=== PATIENT | female | born 1960 | race Caucasian/White ===

== ENCOUNTER 2025-05-10 15:31 | Emergency (ER) | payer OTHER ==
[2025-05-10] MEDS ORDERED: ONDANSETRON 4 MG (ODT) TAB ONE (15:36)
[2025-05-10] MEDS ORDERED: LIDOCAINE 1% MPF 5 ML VIAL ONE (15:38)
[2025-05-10] MEDS ORDERED: BUPIVACAINE 0.5% PF 10 ML VIAL ONE (15:39)
--- OUTSIDE RECORDS SUMMARY | 2025-05-10 15:40 | XMS REPORT | Continuity of Care Document ---
Author Name Unknown Address [address] [facility] [address] [place] [address] [facility] Address [address] [facility] [address] [place] [address] Support Name Relationship Address Phone AIDA CAILXTO Personal Relationship [address] [place] [address] AIDA CALIXTO Personal Relationship [address] [place] [address] AIDA CALIXTO [address] [place] [phone] Aida Cee Spouse [address] [id number] MIHAI WONG Unknown Unavailable AIDA CALIXTO X [address] [phone] Unavailable ONDINA DUARTE [address] [place], [place] [id number] AIDA CALIXTO [id number] [place] [address] 1 [address] [place] [address] Unavailable 2 Personal Relationship [address] [place] [address] Unavailable 2 Personal Relationship [address] [place] [phone] Unavailable 1 AIDA [address] [facility] [address] [facility] [address] [place] [id number] Unavailable [address] [place], [place] [id number] Unavailable 3 Personal Relationship [address] [place] [phone] Unavailable AIDA CALIXTO SP [address]250 REPLACED BY [facility] [address] [place], [place] [id number] Unavailable Unavailable Personal Relationship [address] [place] [phone] Unavailable Care Team Providers Care Finance Intern Name Role Phone PCP, PATIENT DOES NOT HAVE A Primary Care Physic david Unavailable FAUSTO HOOVER Attending Clinician Unavailable FILIBERTO TREVINO Attending Clinician Unavailab rahul ALBERTO MD Attending Clinician Unavailab Chaz Schultz Attending Clinician Unavailab le LAB90 Attending Clinician Unavailable ANDRES MORALES Attending Clinician Unavailable SYDNEY JONAS Attending Clinician UnavailSYDNEY Huerta Attending Clinician UnavailSydney Huerta MD Attending Clinician [phone] [facility] Attending Clinician Unavailabl e FT39 Attending Clinician Unavailable [facility] Attending Clinician Unavailable Sydney Jonas MD Attending Clinician [phone] Doctor Unassigned, Heeney Attending Clinician U SUSAN Freeman Attending Clinician Unavailable BLAS GU Attending Clinician Unavailable ELENA STREETER Attending Clinician Unavailable PATTIE BABB Attending Clinician Unavailable Charlotte Mcdonald MD Attending Clinician [phone] CHARLOTTE MCDONALD Attending Clinician Unavailable Radiology Attending Clinician Unavailable RADIOLOGY Attending Clinician Unavailable Luis Attending Clinician Unavailable Team, [facility] Attending Clinicia n Unavailable Alex MENDOZA-Pattie Vargas Attending Clinician [phone] Teeamberly_Shyanne Attending Clinician Unavailable Gianni Attending Clinician Unavailable LORETO MIRANDA Attending Clinician Unavailable Bailey Álvarez RN Attending Clinician Unavailable UNKNOWN, ATTENDING Attending Clinician Unavailab Chaz Schultz Admitting Clinician UnavailCharlotte Cody MD Admitting Clinician [phone] CHARLOTTE MCDONALD Admitting Clinician Unavailable Luis Admitting Clinician Unavailable Teer_Shyanne Admitting Clinician Unavailable Gianni Admitting Clinician Unavailable Payers Payer Name Policy Type Policy Number Effective Date Expirati on Date Source [employer] 2 [id number] 2024 00:00:00 CIGNA II [id number] 2013 00:00:00 [employer] [facility] [id number] 2016 00:00:00 Problems Condition Name Condition Details Condition Category Status Onset Date Resolution Date Last Treatment Date Treating Clinician Comments Source Pacemaker Pacemaker Disease Active 2025-0 5-05 00:00: 00 Connie Pfeiffer - Externa jose raul AV block, Mobitz 2 AV block, Mobitz 2 Disease Active 4 00:00: 00 Connie Pfeiffer - Externa jose raul Well adult exam Well adult exam Disease Active 4 00:00: 00 Connie Quesada Externa jose raul Gastroesop hageal reflux disease without esophagiti s Gastroesop hageal reflux disease without esophagiti s Disease Active 1-31 00:00: 00 Connie Pfeiffer - Externa jose raul Left arm cellulitis Left arm cellulitis Disease Active 9-16 00:00: 00 Connie Pfeiffer - Externa jose raul Class 1 obesity due to excess calories with serious comorbidit y and body mass index (BMI) of 34.0 to 34.9 in adult Class 1 obesity due to excess calories with serious comorbidit y and body mass index (BMI) of 34.0 to 34.9 in adult Disease Active 6-03 00:00: 00 Connie Pfeiffer - Externa jose raul Primary insomnia Primary insomnia Disease Active 603 00:00: 00 Connie Pfeiffer - Externa jose raul Severe obesity Severe obesity Disease Active 603 00:00: 00 Connie Pfeiffer - Externa jose raul Statin intoleranc e Statin intoleranc e Disease Active 4-04 00:00: 00 Connie Pfeiffer - Externa jose raul Blood pressure elevated without history of HTN Blood pressure elevated without history of HTN Disease Active 11-23 00:00: 00 Connie Pfeiffer - Externa jose raul Other fatigue Other fatigue Disease Active -08 00:00: 00 Connie Pfeiffer - Externa jose raul Primary hypertensi on Primary hypertensi on Disease Active 11-23 00:00: 00 Connie Pfeiffer - Externa jose raul Prediabete s Prediabete s Disease Active 2021-09 00:00: 00 Connie Pfeiffer - Externa jose raul Obesity (BMI 30-39.9) Obesity (BMI 30-39.9) Disease Active 2021-09 00:00: 00 [facility] Right upper quadrant abdominal pain Right upper quadrant abdominal pain Disease Active 2021-09 00:00: 00 Connie Seybold - Externa l Nicotine dependence Nicotine Dependence Problem Active 05-29 00:00: 00 [facility] Gastroesop hageal reflux disease without esophagiti s Gastroesop hageal Reflux Disease without Esophagiti s Problem Active 05-29 00:00: 00 [facility] Osteoarthr itis Osteoarthr itis Problem Active 05-29 00:00: 00 [facility] History of pulmonary embolus History of Pulmonary Embolus Problem Active 05-29 00:00: 00 [facility] Closed fracture of multiple phalanges of toe of right foot Closed fracture of multiple phalanges of toe of right foot Disease Active 05-09 00:00: 00 Connei Jungold PE (pulmonary thromboemb olism) PE (pulmonary thromboemb olism) Disease Active 01-18 00:00: 00 Connie Jungold Tobacco use disorder Tobacco use disorder Disease Active 02-04 00:00: 00 Connie Seybold Knee pain Knee pain Disease Active 02-04 00:00: 00 Connie Seybold Hip pain Hip pain Disease Active 02-04 00:00: 00 Connie Seybold - Externa l GERD (gastroeso phageal reflux disease) GERD (gastroeso phageal reflux disease) Disease Active 10-16 00:00: 00 Connie Seybold Mixed hyperlipid emia Mixed hyperlipid emia Disease Active 02-13 00:00: 00 Connie Seybold - Externa l No known active problems No known active problems Disease [facility] Allergies, Adverse Reactions, Alerts Allergy Name Allergy Type Status Severity Reaction(s) Onset Date Inactive Date Treating Clinician Comments Source predniso ne DA Active MO hives 01-15 00:00: 00 [facility] Atorvast atin Propensi ty to adverse reaction s Active Myalgia 2023-09 0 00:00: 00 Severe after 4 days of taking Connie Seybold - Externa l Predniso ne Drug Intolera nce Active Other - See comments 09-23 00:00: 00 Agitation Agitation [facility] Yellow Dye Propensi ty to adverse reaction s Active Itching 09-23 00:00: 00 [facility] VENOM-HO DOMITILA BEE DRUG INGREDI Active High Anaphylaxis 0 - 00:00: 00 [facility] YELLOW DYE DRUG INGREDI Active High ITCHING 0 09-23 00:00: 00 [facility] PREDNISO NE DRUG INGREDI Active Med Anxiety - 00:00: 00 [facility] Predniso ne Propensi ty to adverse reaction s Active Other - 00:00: 00 Agitation Connie Jungold - Externa l Bee Venom Propensi ty to adverse reaction s Active Anaphylaxis - 00:00: 00 Connie Jungold - Externa l Honey Bee Venom Propensi ty to adverse reaction s Active Anaphylaxis 0 09-23 00:00: 00 Connie Pfeiffer - Externa jose raul Bee Venom Propensi ty to adverse reaction s Active Anaphylaxis 09-23 00:00: 00 Connie Pfeiffer - [place] jose raul Yellow Dye Propensi ty to adverse reaction s Active Itching 09-23 00:00: 00 Connie Pfeiffer - Externa l Kdc:[place] ow Dye+Tart razine+L evofloxa catherine Propensi ty to adverse reaction s Active Itching 09-23 00:00: 00 Connie Pfeiffer - Externa l HYDROCOD ONE-ACET AMINOPHE N DRUG Active Low NAUSEA ONLY 05-09 00:00: 00 [facility] Hydrocod one-Acet aminophe n Propensi ty to adverse reaction s Active Nausea Only 05-09 00:00: 00 Connie Pfeiffer - Externa l levoflox acin DA Active U VOMITING 01-18 00:00: 00 [facility] venom-ho domitila bee DA Active SV EDEMA 01-18 00:00: 00 [facility] latex DA Active U RASH, EDEMA 01-18 00:00: 00 [facility] Latex Propensi ty to adverse reaction s Active Rash 12-20 00:00: 00 [facility] LATEX DRUG INGREDI Active High Rash 12-20 00:00: 00 [facility] Latex Drug Allergy Active Rash 12-20 00:00: 00 Connie Pfeiffer - Externa l Latex Drug Allergy Active Rash 12-20 00:00: 00 Connie Pfeiffer Levoflox acin Propensi ty to adverse reaction s to drug Active Nausea and/or Vomiting 10-18 00:00: 00 Prolonged vomiting 3 to 4 hours after taking a dose. [facility] LEVOFLOX ACIN DRUG INGREDI Active Med N/V 10-18 00:00: 00 [facility] Levoflox acin Propensi ty to adverse reaction s Active Nausea and Vomiting 10-18 00:00: 00 Prolonged vomiting 3 to 4 hours after taking a dose. Connie Pfeiffer - Externa l Amoxicil alireza-Pot Clavulan ate Propensi ty to adverse reaction s to drug Active Hives 12-19 00:00: 00 Vomiting (combinat ion of augment and amoxicill in) [facility] AMOXICIL ALIREZA-POT CLAVULAN ATE DRUG Active Med Hives 12-19 00:00: 00 [facility] Amoxicil alireza-Pot Clavulan ate Propensi ty to adverse reaction s Active Hives 12-19 00:00: 00 vomiting Connie Blackburna l Augmenti n Propensi ty to adverse reaction s to drug Active 12-19 00:00: 00 vomiting Connie blunt No Known Contrast Allergie s DA Active U 2007-09 00:00: 00 [facility] No Known Drug Allergie s DA Active U 2007-09 00:00: 00 [facility] No Known Food Allergie s DA Active U 2007-09 00:00: 00 [facility] No Known Other Allergie s DA Active U 2007-09 00:00: 00 [facility] NO KNOWN ALLERGIE S Drug [facility] VENOM PROTEIN (HONEY BEE) Allergy to substanc e Active Moderate to severe Anaphylaxis [facility] Latex Allergy to substanc e Active Mild to moderate Rash [facility] Levaquin Allergy to substanc e Active Moderate to severe Itching [facility] Social History Social Habit Start Date Stop Date Quantity Comments Source [facility] History of tobacco use Cigarette Smoker Connie parada - External History SDOH Alcohol Frequency Connie kapoor - External History SDOH Alcohol Std Drinks Connie harris - External History SDOH Alcohol Binge Connie Pfeiffer - External ASSERTION Not Connie Pfeiffer - External History of Occupation Connie Pfeiffer - External Alcoholic beverage intake 2024-10-30 00:00:00 2024-10-30 00:00:00 [facility] History of Social function 2024-03-13 00:00:00 2024-03-13 00:00:00 [facility] Cigarettes smoked current (pack per day) - Reported 2024-02-19 00:00:00 2024-02-19 00:00:00 Connie Pfeiffer - External Cigarette pack-years 2024-02-19 00:00:00 2024-02-19 00:00:00 Connie Pfeiffer - External Tobacco use and exposure 2024-02-19 00:00:00 2024-02-19 00:00:00 Smokeless tobacco non-user Connie Pfeiffer - External Alcohol intake 2023-12-21 00:00:00 2023-12-21 00:00:00 Current drinker of alcohol (finding) Connie Pfeiffer - External Tobacco Comment 2023-11-24 00:00:00 2023-11-24 00:00:00 Patient is a former cigarette smoker, now vapes Connie Pfeiffer - External Exposure to SARS-CoV-2 (event) 2022-08-08 00:00:00 2022-08-18 16:05:00 Not sure [facility] Alcohol Comment 2022-08-17 00:00:00 2022-08-17 00:00:00 rarely Connie Pfeiffer - External Education 2022-08-17 00:00:00 2022-08-17 00:00:00 17 Connie Pfeiffer - External Sex 2013-10[birth year] 19:41:59 2013-10[birth year]03 19:41:59 Female (finding) Connie Pfeiffer - External Sex assigned at 1960 00:00:00 1960 00:00:00 F Connie Quesada External Smoking Status Start Date Stop Date Source Light Tobacco Smoker [facility] Smokes tobacco daily 2024-02-19 00:00:00 Connie Quesada External Ex-smoker 2022-08-17 00:00:00 2022-08-17 00:00:00 Kedar Pfeiffer - External Medications Ordered Medication Name Filled Medication Name Start Date Stop Date Current Medication? Ordering Clinician Indication Dosage Frequency Signature (SIG) Comments Components Source Semaglutide (0.25 or 0.5 mg/dose) 2 mg/3 mL SQ Solution Pen-Injecto r 03-10 16:09: 15 Yes Q1W Inject into the skin once a week. Connie blunt HYDROcodone -Acetaminop hen (NORCO) 5-325 MG oral Tablet 05 00:00: 00 03-10 00:00 :00 No [id number] 1{tbl} QD Take 1 tablet by mouth daily as needed for pain. Connie blunt Doxycycline Hyclate 100 MG oral Capsule 01-15 00:00: 00 03-10 00:00 :00 No Connie blunt EPINEPHrine (EPIPEN 2-CARTER) 0.3 MG/0.3 ML IJ SOA 01-06 00:00: 00 Yes [id number] 984665 .3mg Inject 0.3 mL (0.3 mg total) as directed as needed for anaphylaxi s 1 time only. Connie blunt Ibuprofen (MOTRIN) 800 MG oral Tablet 01-06 00:00: 00 01-13 00:00 :00 No [id number] 800mg Q.[id number] 3D Take 1 tablet (800 mg total) by mouth every 8 hours as needed for pain. Connie blunt Cephalexin 500 MG oral Capsule 4-21 00:00: 00 01-13 00:00 :00 No [id number] 500mg Q.25D Take 1 capsule (500 mg total) by mouth 4 times daily. Connie blunt Omeprazole 40 MG oral Delayed Release Capsule 2- 00:00: 00 Yes [id number] 40mg QD Take 1 capsule (40 mg total) by mouth daily. Connie blunt Losartan Potassium 25 MG oral Tablet 11-08 00:00: 00 Yes [id number] 25mg QD Take 1 tablet (25 mg total) by mouth daily. Connie blunt Tirzepatide -Weight Management 2.5 MG/0.5ML subcutaneou s Solution Auto-inject or 10-18 00:00: 00 01-13 00:00 :00 No [id number] 104 2.5mg Q1W Inject 0.5 mL (2.5 mg total) into the skin once a week. Connie blunt EPINEPHrine (EPIPEN 2-CARTER) 0.3 MG/0.3 ML IJ SOAJ 06-03 00:00: 00 01-06 00:00 :00 No [id number] 286564 .3mg Inject 0.3 mL (0.3 mg total) as directed as needed for anaphylaxi s 1 time only. Connie blunt Doxycycline Hyclate 100 MG oral Tablet 06-03 00:00: 00 10-18 00:00 :00 No [id number] 100mg Take 1 tablet (100 mg total) by mouth every 12 hours Please take with food. Connie blunt Ibuprofen (MOTRIN) 800 MG oral Tablet 06-03 00:00: 00 10-18 00:00 :00 No [id number] 800mg Take 1 tablet (800 mg total) by mouth every 12 hours as needed for pain Please take with food. Connie blunt triamcinolo ne acetonide (KENALOG) injection 8 mg 03-13 05:00: 00 03-13 16:59 :00 No [id number] 9107 8mg [facility] losartan 25 mg tablet 02-22 00:00: 00 Yes 25mg Take 1 tablet by mouth in the morning. [facility] Losartan Potassium 25 MG oral Tablet 12-20 00:00: 00 Yes [id number] 25mg Take 1 tablet (25 mg total) by mouth daily. Connie blunt Losartan Potassium 25 MG oral Tablet 11-23 00:00: 00 Yes [id number] 25mg Take 1 tablet (25 mg total) by mouth daily. Connie blunt Omeprazole 40 MG oral Delayed Release Capsule 11-23 00:00: 00 Yes [id number] 40mg QD Take 1 capsule (40 mg total) by mouth daily. Connie blunt triamcinolo ne acetonide (KENALOG) injection 80 mg 09-21 21:30: 00 09-21 20:36 :00 No [id number] 9102 80mg [facility] acetaminoph en-codeine 300-30 mg tablet 2022-09 00:00: 00 Yes TAKE ONE (1) TABLET(S) BY MOUTH EVERY EIGHT HOURS NEEDED FOR PAIN. [facility] LANSOPRAZOL E (PREVACID ORAL) 05-22 11:56: 22 05-22 00:00 :00 No Take by mouth. [facility] triamcinolo ne acetonide (KENALOG) injection 40 mg 05-19 15:30: 00 05-19 14:23 :00 No [id number] 9102 40mg [facility] PEG-KCl-NaC l-NaSulf-Na Asc-C (MOVIPREP) 100 g oral Recon Soln 10-17 00:00: 00 12-20 00:00 :00 No [id number] Instructio ns provided to patient. Follow instructio ns provided by provider. Connie blunt Omeprazole 40 MG oral Delayed Release Capsule 10-17 00:00: 00 11-23 00:00 :00 No [id number] 40mg Take 1 capsule (40 mg total) by mouth daily Connie blunt Atorvastati n Calcium 20 MG oral Tablet 2021-09 00:00: 00 11-23 00:00 :00 No [id number] 20mg Take 1 tablet (20 mg total) by mouth daily Connie blunt EPINEPHrine (EPIPEN 2-CARTER) 0.3 MG/0.3 ML IJ SOAJ 2021-09 00:00: 00 06-03 00:00 :00 No [id number] 605065 .3mg Inject 0.3 mL (0.3 mg total) as directed as needed for anaphylaxi s 1 time only Connie blunt lactated ringers IV infusion 1,000 mL 2021-09 19:30: 00 Yes 1000mL at 100 mL/hr, 1,000 mL, IV Infusion, CONTINUOUS , Starting on Mon08/23/22 at 1330, Until Discontinu ed, Routine, PACU [facility] HYDROcodone -acetaminop hen (NORCO 5) 5-325 mg tablet 1 tablet 2021-09 19:30: 00 08-23 20:32 :00 No 1{tbl} 1 tablet, Oral, ONCE, 1 dose, On Mon08/23/22 at 1330, Routine, PACU [facility] HYDROmorphO ne (DILAUDID) injection 0.2 mg 2021-09 19:19: 51 Yes .2mg 0.2 mg, Slow IV Push, Q5MIN PRN, 10 doses, Starting on Mon08/23/22 at 1319, Until Discontinu ed, Routine, Pain (scale 7-10), PACU
Us e approved by (Faculty): PACU USE -ANESTHESI A SERVICE-HY DROMORPHON E INJECTIONS [facility] ondansetron (ZOFRAN (PF)) injection 4 mg 2021-09 19:19: 51 Yes 4mg 4 mg, Slow IV Push, PRN, 1 dose, Starting on Mon08/23/22 at 1319, Until Discontinu ed, Routine, Nausea and Vomiting (N/V), PACU [facility] FENTanyl PF (SUBLIMAZE (PF)) injection 25 mcg 2021-09 19:19: 51 08-23 20:02 :00 No 25ug 25 mcg, Slow IV Push, Q5MIN PRN, 4 doses, Starting on Mon08/23/22 at 1319, Until Mon08/23/22 at 1402, Routine, Pain (scale 4-6), PACU [facility] bupivacaine -epinephrin e-pf (SENSORCAIN E W/EPINEPHRI NE) 0.25 %-1:200,000 injection 2021-09 18:17: 00 08-23 19:19 :36 No PRN, Starting on Mon08/23/22 at 1217, Until Mon08/23/22 at 1319, Routine, Intra-op [facility] sodium chloride 0.9 % irrigation solution 2021-09 18:17: 00 08-23 19:19 :36 No PRN, Starting on Mon08/23/22 at 1217, Until Mon08/23/22 at 1319, Intra-op [facility] lactated ringers IV infusion 1,000 mL 2021-09 17:15: 00 08-23 17:10 :00 No 1000mL at 42 mL/hr, 1,000 mL, IV Infusion, ONCE, 1 dose, On Mon08/23/22 at 1115, Routine, DSU Pre-op [facility] LANSOPRAZOL E (PREVACID ORAL) 2021-09 15:23: 14 Yes Take by mouth. [facility] Prevacid 3 mg/mL compounded oral suspension 2021-09 15:06: 36 08-17 00:00 :00 No 1{tbl} Take 1 tablet by mouth daily Connie blunt Lansoprazol e (PREVACID OR) 2021-09 15:06: 08-17 00:00 :00 No Take by mouth Connie blunt Ibuprofen (ADVIL) 200 MG oral Tab 2021-09 15:06: 24 08-17 00:00 :00 No 800mg Take 800 mg by mouth 2 times daily Sometimes 3 times a day Connie blunt Dexamethaso ne Sodium Phosphate (DECADRON) 4 mg/mL 09-23 22:00: 00 09-23 22:08 :00 No [id number] 8mg Connie Pfeiffer Lansoprazol e (PREVACID OR) 09-23 15:28: 58 Yes Take by mouth Connie Pfeiffer Ibuprofen (ADVIL) 200 MG oral Tab 09-23 15:28: 58 Yes 800mg Take 800 mg by mouth 2 times daily Sometimes 3 times a day Connie Pfeiffer Prevacid 3 mg/mL compounded oral suspension 09-23 15:28: 58 Yes 1{tbl} Take 1 tablet by mouth daily Connie Pfeiffer EPINEPHrine 0.3 mg/0.3 mL injection 09-23 00:00: 00 Yes 1{each} 1 Each as needed. [facility] EPINEPHrine (EPIPEN 2-CARTER) 0.3 MG/0.3 ML IJ SOAJ 09-23 00:00: 00 09-08 00:00 :00 No [id number] 345531 .3mg Inject 0.3 mL (0.3 mg total) as directed as needed for anaphylaxi s 1 time only Connie blunt Triamcinjustin ne Acetonide 0.1 % apply externally Cream 09-23 00:00: 00 10-22 05:59 :00 No [id number] Apply to area twice daily Connie Pfeiffer ondansetron 4 mg disintegrat ing tablet 02-18 00:00: 00 02-23 04:59 :00 No [id number] 4mg Take 1 tablet by mouth every 8 (eight) hours as needed for Nausea and Vomiting (N/V) for up to 4 days. [facility] Benzonatate 200 MG oral Cap 05-29 00:00: 00 Yes 200mg Q.[id number] 3D Take 1 capsule by mouth 3 times daily as needed for cough Connie Pfeiffer Guaifenesin -Codeine 100-10 MG/5ML oral Syrup 05-25 00:00: 00 Yes [id number] 5mL Q.[id number] 3D Take 5 mL by mouth 3 times daily as needed for cough Connie Pfeiffer Albuterol HFA 108 (90 Base) MCG/ACT IN AERS 05-25 00:00: 00 Yes [id number] 2{puff} Q4H Inhale 2 puffs into the lungs every 4 hours as needed for wheezing Connie Pfeiffer Tramadol HCl 50 MG oral Tab 05-09 00:00: 00 Yes 50mg Q6H Take 1 tablet by mouth every 6 hours as needed for pain Connie Pfeiffer LANSOPRAZOL E (PREVACID ORAL) 05-13 18:27: 56 Yes Take by mouth. [facility] MELOXICAM ORAL 05-13 18:27: 56 Yes Take by mouth. [facility] LANSOPRAZOL E (PREVACID ORAL) 05-13 13:27: 56 Yes Take by mouth. [facility] Aleve 220 mg capsule Take 1 capsule every day by oral route as needed. Aleve 220 mg capsule Take 1 capsule every day by oral route as needed. No 1capsul e(s) Q1D Aleve 220 mg capsule Take 1 capsule every day by oral route as needed. [facility] hydroxyzine HCl 25 mg tablet Take 1 tablet 3 times a day by oral route as needed. itching, caution with drowsiness. hydroxyzine HCl 25 mg tablet Take 1 tablet 3 times a day by oral route as needed. itching, caution with drowsiness. No 1 TID hydroxyzin e HCl 25 mg tablet Take 1 tablet 3 times a day by oral route as needed. itching, caution with drowsiness . [facility] Pepcid Complete 1 tab po once a day Pepcid Complete 1 tab po once a day No Pepcid Complete 1 tab po once a day [facility] prednisone 20 mg tablet 3 tabs po daily x 3 days, 2 tabs daily x 3 days and then 1 tab daily x 3 days. prednisone 20 mg tablet 3 tabs po daily x 3 days, 2 tabs daily x 3 days and then 1 tab daily x 3 days. No prednisone 20 mg tablet 3 tabs po daily x 3 days, 2 tabs daily x 3 days and then 1 tab daily x 3 days. [facility] e Immunizations Ordered Immunization Name Filled Immunization Name Date Status Comments Source Influenza Virus Vaccine, age 6 months and up 2022-10-24 00:00:00 Completed Connie Seybold - External Influenza Virus Vaccine, age 6 months and up 2022-10-24 00:00:00 Completed Connie Seybold - External Influenza Virus Vaccine, age 6 months and up 2022-09-08 00:00:00 Completed Connie Seybold - External Influenza Virus Vaccine, age 6 months and up 2022-09-08 00:00:00 Completed Connie Seybold - External Influenza Virus Vaccine, age 6 months and up 2022-09-08 00:00:00 Completed Connie Seybold - External Influenza Virus Vaccine, age 6 months and up 2022-09-08 00:00:00 Completed Connie Seybold - External SARS-COV-2 COVID-19 PFIZER VACCINE 2020-12-07 00:00:00 Completed [facility] SARS-COV-2 COVID-19 PFIZER VACCINE 2020-12-07 00:00:00 Completed [facility] SARS-COV-2 COVID-19 PFIZER VACCINE 2020-12-07 00:00:00 Completed [facility] SARS-COV-2 COVID-19 PFIZER VACCINE 2020-12-07 00:00:00 Completed [facility] SARS-COV-2 COVID-19 PFIZER VACCINE 2020-12-07 00:00:00 Completed [facility] SARS-COV-2 COVID-19 PFIZER VACCINE 2020-12-07 00:00:00 Completed [facility] SARS-COV-2 COVID-19 PFIZER VACCINE 2020-12-07 00:00:00 Completed [facility] SARS-COV-2 COVID-19 PFIZER VACCINE 2020-12-07 00:00:00 Completed [facility] SARS-COV-2 COVID-19 PFIZER VACCINE 2020-12-07 00:00:00 Completed [facility] SARS-COV-2 COVID-19 PFIZER VACCINE 2020-12-07 00:00:00 Completed [facility] [facility] SARS-COV-2 COVID-19 PFIZER VACCINE 2020-12-07 00:00:00 Completed [facility] Pfizer COVID-19 Vaccine Pfizer COVID-19 Vaccine 2020-12-07 00:00:00 Completed COVID-19, mRNA, LNP-S, PF, 30 mcg/0.3 mL dose COVID-19, mRNA, LNP-S, PF, 30 mcg/0.3 mL dose 2020-12-07 00:00:00 Completed [facility] COVID-19 VACCINE PFIZER 12+ (Hughes cap) 2020-12-07 00:00:00 Completed Connie Seybold - External Covid-19 Vaccine (Pfizer), Mrna-lnp, Gonzalo Protein, Pf, 30mcg/0.3ml,IM 2020-12-07 00:00:00 Completed Connie Seybold - External COVID-19 VACCINE PFIZER 12+ (Hughes cap) 2020-12-07 00:00:00 Completed Connie Seybold - External Covid-19 Vaccine (Pfizer), Mrna-lnp, Gonzalo Protein, Pf, 30mcg/0.3ml,IM 2020-12-07 00:00:00 Completed Connie Seybold - External COVID-19 VACCINE PFIZER 12+ (Hughes cap) 2020-12-07 00:00:00 Completed Connie Seybold - External Covid-19 Vaccine (Pfizer), Mrna-lnp, Gonzalo Protein, Pf, 30mcg/0.3ml,IM 2020-12-07 00:00:00 Completed Connie Seybold - External COVID-19 VACCINE PFIZER 12+ (Hughes cap) 2020-12-07 00:00:00 Completed Connie Seybold - External Covid-19 Vaccine (Pfizer), Mrna-lnp, Gonzalo Protein, Pf, 30mcg/0.3ml,IM 2020-12-07 00:00:00 Completed Connie Seybold - External COVID-19 VACCINE PFIZER 12+ (Hughes cap) 2020-12-07 00:00:00 Completed Connie Seybold COVID-19 VACCINE PFIZER 12+ (Hughes cap) 2020-12-07 00:00:00 Completed Connie Seybold - External Covid-19 Vaccine (Pfizer), Mrna-lnp, Gonzalo Protein, Pf, 30mcg/0.3ml,IM 2020-12-07 00:00:00 Completed Connie Seybold - External SARS-COV-2 COVID-19 PFIZER VACCINE 2020-11-14 00:00:00 Completed [facility] SARS-COV-2 COVID-19 PFIZER VACCINE 2020-11-14 00:00:00 Completed [facility] SARS-COV-2 COVID-19 PFIZER VACCINE 2020-11-14 00:00:00 Completed [facility] SARS-COV-2 COVID-19 PFIZER VACCINE 2020-11-14 00:00:00 Completed [facility] SARS-COV-2 COVID-19 PFIZER VACCINE 2020-11-14 00:00:00 Completed [facility] SARS-COV-2 COVID-19 PFIZER VACCINE 2020-11-14 00:00:00 Completed [facility] SARS-COV-2 COVID-19 PFIZER VACCINE 2020-11-14 00:00:00 Completed [facility] SARS-COV-2 COVID-19 PFIZER VACCINE 2020-11-14 00:00:00 Completed [facility] SARS-COV-2 COVID-19 PFIZER VACCINE 2020-11-14 00:00:00 Completed [facility] SARS-COV-2 COVID-19 PFIZER VACCINE 2020-11-14 00:00:00 Completed [facility] SARS-COV-2 COVID-19 PFIZER VACCINE 2020-11-14 00:00:00 Completed [facility] Pfizer COVID-19 Vaccine Pfizer COVID-19 Vaccine 2020-11-14 00:00:00 Completed COVID-19 VACCINE PFIZER 12+ (Hughes cap) 2020-11-14 00:00:00 Completed Connie Seybold - External Covid-19 Vaccine (Pfizer), Mrna-lnp, Gonzalo Protein, Pf, 30mcg/0.3ml,IM 2020-11-14 00:00:00 Completed Connie Seybold - External COVID-19 VACCINE PFIZER 12+ (Hughes cap) 2020-11-14 00:00:00 Completed Connie Seybold - External Covid-19 Vaccine (Pfizer), Mrna-lnp, Gonzalo Protein, Pf, 30mcg/0.3ml,IM 2020-11-14 00:00:00 Completed Connie Seybold - External COVID-19 VACCINE PFIZER 12+ (Hughes cap) 2020-11-14 00:00:00 Completed Connie Seybold - External Covid-19 Vaccine (Pfizer), Mrna-lnp, Gonzalo Protein, Pf, 30mcg/0.3ml,IM 2020-11-14 00:00:00 Completed Connie Seybold - External COVID-19 VACCINE PFIZER 12+ (Hughes cap) 2020-11-14 00:00:00 Completed Connie Seybold - External Covid-19 Vaccine (Pfizer), Mrna-lnp, Gonzalo Protein, Pf, 30mcg/0.3ml,IM 2020-11-14 00:00:00 Completed Connie Seybold - External COVID-19 VACCINE PFIZER + (Hughes cap) 2020-11-14 00:00:00 Completed Connie Seybold COVID-19 VACCINE PFIZER 12+ (Hughes cap) 2020-11-14 00:00:00 Completed Connie Seybold - External Covid-19 Vaccine (Pfizer), Mrna-lnp, Gonzalo Protein, Pf, 30mcg/0.3ml,IM 2020-11-14 00:00:00 Completed Connie Seybold - External COVID-19, mRNA, LNP-S, PF, 30 mcg/0.3 mL dose COVID-19, mRNA, LNP-S, PF, 30 mcg/0.3 mL dose 2020-11-09 00:00:00 Completed [facility] Covid-19 Vaccine (Pfizer), Mrna-lnp, Gonzalo Protein, Pf, 30mcg/0.3ml,IM 2020-11-09 00:00:00 Completed Connie Seybold - External Covid-19 Vaccine (Pfizer), Mrna-lnp, Gonzalo Protein, Pf, 30mcg/0.3ml,IM 2020-11-09 00:00:00 Completed Connie Seybold - External Covid-19 Vaccine (Pfizer), Mrna-lnp, Gonzalo Protein, Pf, 30mcg/0.3ml,IM 2020-11-09 00:00:00 Completed Connie Chatmanybold - External Covid-19 Vaccine (Pfizer), Mrna-lnp, Gonzalo Protein, Pf, 30mcg/0.3ml,IM 2020-11-09 00:00:00 Completed Connie Chatmanybold - External Covid-19 Vaccine (Pfizer), Mrna-lnp, Gonzalo Protein, Pf, 30mcg/0.3ml,IM 2020-11-09 00:00:00 Completed Connie Jungold - External influenza, injectable, quadrivalent, preservative free influenza, injectable, quadrivalent, preservative free 2020-05-29 16:08:59 Completed [facility] Influenza Virus Vaccine, No Preserv, age 6 months and up 2020-05-29 00:00:00 Completed Connie Chatmanybold - External Influenza Virus Vaccine, No Preserv, age 6 months and up 2020-05-29 00:00:00 Completed Connie Seybold - External Influenza Virus Vaccine, No Preserv, age 6 months and up 2020-05-29 00:00:00 Completed Connie Seybold - External Influenza Virus Vaccine, No Preserv, age 6 months and up 2020-05-29 00:00:00 Completed Connie Seybold - External Influenza Virus Vaccine, No Preserv, age 6 months and up 2020-05-29 00:00:00 Completed Connie Seybold Influenza Virus Vaccine, No Preserv, age 6 months and up 2020-05-29 00:00:00 Completed Connie Chatmanold - External tetanus toxoid, unspecified formulation tetanus toxoid, unspecified formulation 2010-09-18 00:00:00 Completed [facility] tetanus toxoid, unspecified formulation 2010-09-18 00:00:00 Completed Connie Chatmanybold - External tetanus toxoid, unspecified formulation 2010-09-18 00:00:00 Completed Connie Seybold - External tetanus toxoid, unspecified formulation 2010-09-18 00:00:00 Completed Connie Seybold - External tetanus toxoid, unspecified formulation 2010-09-18 00:00:00 Completed Connie Chatmanybold - External tetanus toxoid, unspecified formulation 2010-09-18 00:00:00 Completed Connie Jungold tetanus toxoid, unspecified formulation 2010-09-18 00:00:00 Completed Connie Seybold - External Td- Tetanus & Diphtheria Vaccine (age 7+ years) 2008 00:00:00 Completed Connie Seybold - External Td- Tetanus & Diphtheria Vaccine (age 7+ years) 2008 00:00:00 Completed Connie Seybold - External Td- Tetanus & Diphtheria Vaccine (age 7+ years) 2008 00:00:00 Completed Connie Seybold - External Td- Tetanus & Diphtheria Vaccine (age 7+ years) 2008 00:00:00 Completed Connie ybold Td- Tetanus & Diphtheria Vaccine (age 7+ years) 2008 00:00:00 Completed Connie Seybold - External Td- Tetanus & Diphtheria Vaccine (age 7+ years) 2008 00:00:00 Completed Connie Jungold - External SARS-COV-2 COVID-19 PFIZER VACCINE Unknown Completed [facility] SARS-COV-2 COVID-19 PFIZER VACCINE Unknown Completed [facility] SARS-COV-2 COVID-19 PFIZER VACCINE Unknown Completed [facility] Td- Tetanus & Diphtheria Vaccine (age 7+ years) Unknown Completed Connie Seybol d - External COVID-19 VACCINE PFIZER 12+ (Hughes cap) Unknown Completed Connie Seybold - External Influenza Virus Vaccine, No Preserv, age 6 months and up Unknown Completed Connie Chatmanybold - External tetanus toxoid, unspecified formulation Unknown Completed Connie Seybold - External Covid-19 Vaccine (Pfizer), Mrna-lnp, Gonzalo Protein, Pf, 30mcg/0.3ml,IM Unknown Completed Connie Chatmanybol d - External Influenza Virus Vaccine, age 6 months and up Unknown Completed Connie Seybold - External Td- Tetanus & Diphtheria Vaccine (age 7+ years) Unknown Completed Connie Seybol d - External COVID-19 VACCINE PFIZER 12+ (Hughes cap) Unknown Completed Connie Seybold - External Influenza Virus Vaccine, No Preserv, age 6 months and up Unknown Completed Connie Seybold - External tetanus toxoid, unspecified formulation Unknown Completed Connie Seybold - External Covid-19 Vaccine (Pfizer), Mrna-lnp, Gonzalo Protein, Pf, 30mcg/0.3ml,IM Unknown Completed Connie Seybol d - External Influenza Virus Vaccine, age 6 months and up Unknown Completed Connie Seybold - External Td- Tetanus & Diphtheria Vaccine (age 7+ years) Unknown Completed Connie Seybol d - External COVID-19 VACCINE PFIZER 12+ (Hughes cap) Unknown Completed Connie Seybold - External Influenza Virus Vaccine, No Preserv, age 6 months and up Unknown Completed Connie Seybold - External tetanus toxoid, unspecified formulation Unknown Completed Connie Seybold - External Covid-19 Vaccine (Pfizer), Mrna-lnp, Gonzalo Protein, Pf, 30mcg/0.3ml,IM Unknown Completed Connie Seybol d - External Influenza Virus Vaccine, age 6 months and up Unknown Completed Connie Seybold - External Td- Tetanus & Diphtheria Vaccine (age 7+ years) Unknown Completed Connie Seybol d - External COVID-19 VACCINE PFIZER 12+ (Hughes cap) Unknown Completed Connie Seybold - External Influenza Virus Vaccine, No Preserv, age 6 months and up Unknown Completed Connie Seybold - External tetanus toxoid, unspecified formulation Unknown Completed Connie Seybold - External Covid-19 Vaccine (Pfizer), Mrna-lnp, Gonzalo Protein, Pf, 30mcg/0.3ml,IM Unknown Completed Connie Seybol d - External Influenza Virus Vaccine, age 6 months and up Unknown Completed Connie Seybold - External Yellow Fever Vaccine Unknown Completed Connie Seybold - External Td- Tetanus & Diphtheria Vaccine (age 7+ years) Unknown Completed Connie Seybol d - External COVID-19 VACCINE PFIZER 12+ (Hughes cap) Unknown Completed Connie Seybold - External Influenza Virus Vaccine, No Preserv, age 6 months and up Unknown Completed Connie Seybold - External tetanus toxoid, unspecified formulation Unknown Completed Connie Seybold - External Covid-19 Vaccine (Pfizer), Mrna-lnp, Gonzalo Protein, Pf, 30mcg/0.3ml,IM Unknown Completed Connie Seybol d - External Influenza Virus Vaccine, age 6 months and up Unknown Completed Connie Seybold - External Yellow Fever Vaccine Unknown Completed Connie Seybold - External Td- Tetanus & Diphtheria Vaccine (age 7+ years) Unknown Completed Connie Seybol d - External COVID-19 VACCINE PFIZER 12+ (Hughes cap) Unknown Completed Connie Seybold - External Influenza Virus Vaccine, No Preserv, age 6 months and up Unknown Completed Connie Seybold - External tetanus toxoid, unspecified formulation Unknown Completed Connie Seybold - External Covid-19 Vaccine (Pfizer), Mrna-lnp, Gonzalo Protein, Pf, 30mcg/0.3ml,IM Unknown Completed Connie Seybol d - External Influenza Virus Vaccine, age 6 months and up Unknown Completed Connie Seybold - External Yellow Fever Vaccine Unknown Completed Connie Seybold - External Td- Tetanus & Diphtheria Vaccine (age 7+ years) Unknown Completed Connie Seybol d - External COVID-19 VACCINE PFIZER 12+ (Hughes cap) Unknown Completed Connie Seybold - External Influenza Virus Vaccine, No Preserv, age 6 months and up Unknown Completed Connie Seybold - External tetanus toxoid, unspecified formulation Unknown Completed Connie Seybold - External Covid-19 Vaccine (Pfizer), Mrna-lnp, Gonzalo Protein, Pf, 30mcg/0.3ml,IM Unknown Completed Connie Seybol d - External Influenza Virus Vaccine, age 6 months and up Unknown Completed Connie Seybold - External Yellow Fever Vaccine Unknown Completed Connie Seybold - External Td- Tetanus & Diphtheria Vaccine (age 7+ years) Unknown Completed Connie Seybol d - External COVID-19 VACCINE PFIZER 12+ (Hughes cap) Unknown Completed Connie Seybold - External Influenza Virus Vaccine, No Preserv, age 6 months and up Unknown Completed Connie Seybold - External tetanus toxoid, unspecified formulation Unknown Completed Connie Seybold - External Covid-19 Vaccine (Pfizer), Mrna-lnp, Gonzalo Protein, Pf, 30mcg/0.3ml,IM Unknown Completed Connie Seybol d - External Influenza Virus Vaccine, age 6 months and up Unknown Completed Connie Seybold - External Yellow Fever Vaccine Unknown Completed Connie Seybold - External Td- Tetanus & Diphtheria Vaccine (age 7+ years) Unknown Completed Connie Seybol d - External COVID-19 VACCINE PFIZER 12+ (Hughes cap) Unknown Completed Connie Seybold - External Influenza Virus Vaccine, No Preserv, age 6 months and up Unknown Completed Connie Seybold - External tetanus toxoid, unspecified formulation Unknown Completed Connie Jungold - External Covid-19 Vaccine ([employer]), Mrna-lnp, Gonzalo Protein, Pf, 30mcg/0.3ml,IM Unknown Completed Connie Laughlin d - External Influenza Virus Vaccine, age 6 months and up Unknown Completed Connie Pfeiffer - External Yellow Fever Vaccine Unknown Completed Connie Jungold - External Vital Signs Vital Name Observation Time Observation Value Comments S ource Systolic blood pressure 2025-03-10 21:02:00 108 mm[Hg] Connie Seybo ld - External Diastolic blood pressure 2025-03-10 21:02:00 82 mm[Hg] Connie Chatmanybo ld - External Heart rate 2025-03-10 21:02:00 97 /min Richyse y Seybold - External Body temperature 2025-03-10 21:02:00 36.11 Ayleen Connie Chatmanybold - External Respiratory rate 2025-03-10 21:02:00 18 /min Connie Seybold - External Body height 2025-03-10 21:02:00 167.6 cm Silva ey Seybold - External Body weight 2025-03-10 21:02:00 101.152 kg Silva ey Seybold - External BMI 2025-03-10 21:02:00 35.99 kg/m2 Silva ey Seybold - External Oxygen saturation in Arterial blood by Pulse oximetry 2025-03-10 21:02:00 100 /min Connie Chatmanybo ld - External Systolic blood pressure 2025-01-20 21:32:00 138 mm[Hg] Connie Seybo ld - External Diastolic blood pressure 2025-01-20 21:32:00 88 mm[Hg] Connie Chatmanybo ld - External Heart rate 2025-01-20 21:32:00 86 /min Kelse y Seybold - External Body temperature 2025-01-20 21:32:00 36.44 Ayleen Connie Seybold - External Respiratory rate 2025-01-20 21:32:00 18 /min Connie Seybold - External Body height 2025-01-20 21:32:00 167.6 cm Silva ey Seybold - External Body weight 2025-01-20 21:32:00 107.956 kg Silva ey Seybold - External BMI 2025-01-20 21:32:00 38.41 kg/m2 Silva ey Seybold - External Oxygen saturation in Arterial blood by Pulse oximetry 2025-01-20 21:32:00 98 /min Connie Chatmanybo ld - External Systolic blood pressure 2025-01-13 20:10:00 128 mm[Hg] Connie Seybo ld - External Diastolic blood pressure 2025-01-13 20:10:00 70 mm[Hg] Connie Seybo ld - External Heart rate 2025-01-13 20:10:00 42 /min Kelse y Seybold - External Body temperature 2025-01-13 20:10:00 36.39 Ayleen Connie Seybold - External Respiratory rate 2025-01-13 20:10:00 18 /min Connie Seybold - External Body height 2025-01-13 20:10:00 167.6 cm Silva ey Seybold - External Body weight 2025-01-13 20:10:00 101.424 kg Silva ey Seybold - External BMI 2025-01-13 20:10:00 36.09 kg/m2 Silva ey Seybold - External Oxygen saturation in Arterial blood by Pulse oximetry 2025-01-13 20:10:00 96 /min Connie Chatmanybo ld - External Systolic blood pressure 2025-01-06 21:06:00 134 mm[Hg] Connie Seybo ld - External Diastolic blood pressure 2025-01-06 21:06:00 82 mm[Hg] Connie Seybo ld - External Heart rate 2025-01-06 21:06:00 70 /min Richyse y Seybold - External Body temperature 2025-01-06 21:06:00 36.67 Ayleen Connie Seybold - External Respiratory rate 2025-01-06 21:06:00 20 /min Connie Seybold - External Body height 2025-01-06 21:06:00 167.6 cm Silva ey Seybold - External Body weight 2025-01-06 21:06:00 102.059 kg Silva ey Seybold - External BMI 2025-01-06 21:06:00 36.32 kg/m2 Silva ey Seybold - External Oxygen saturation in Arterial blood by Pulse oximetry 2025-01-06 21:06:00 97 /min Connie Seybo ld - External Systolic blood pressure 2024-10-30 21:35:00 144 mm[Hg] [facility] Diastolic blood pressure 2024-10-30 21:35:00 86 mm[Hg] [facility] Heart rate 2024-10-30 21:34:00 66 [facility] 2024-10-30 21:34:00 18 /min [facility] Body height 2024-10-30 21:34:[address] [facility] Body weight 2024-10-30 21:34:[address] [facility] BMI 2024-10-30 21:34:00 35.91 kg/m2 [facility] Systolic blood pressure 2024-10-18 22:17:00 124 mm[Hg] Connie Seybo ld - External Diastolic blood pressure 2024-10-18 22:17:00 68 mm[Hg] Connie Seybo ld - External Heart rate 2024-10-18 22:17:00 50 /min Kelse y Seybold - External Body temperature 2024-10-18 22:17:00 36.11 Ayleen Connie Seybold - External Respiratory rate 2024-10-18 22:17:00 18 /min Connie Seybold - External Body height 2024-10-18 22:17:00 167.6 cm Silva ey Seybold - External Body weight 2024-10-18 22:17:00 101.878 kg Silva ey Seybold - External BMI 2024-10-18 22:17:00 36.25 kg/m2 Silva ey Seybold - External Oxygen saturation in Arterial blood by Pulse oximetry 2024-10-18 22:17:00 97 /min Connie Seybo ld - External Systolic blood pressure 2024-06-03 18:42:00 122 mm[Hg] Connie Seybo ld - External Diastolic blood pressure 2024-06-03 18:42:00 78 mm[Hg] Connie Seybo ld - External Heart rate 2024-06-03 18:42:00 74 /min Kelse y Seybold - External Body temperature 2024-06-03 18:42:00 36.72 Ayleen Connie Seybold - External Respiratory rate 2024-06-03 18:42:00 20 /min Connie Seybold - External Body height 2024-06-03 18:42:00 167.6 cm Silva ey Seybold - External Body weight 2024-06-03 18:42:00 99.791 kg Silva ey Seybold - External BMI 2024-06-03 18:42:00 35.51 kg/m2 Silva ey Seybold - External Oxygen saturation in Arterial blood by Pulse oximetry 2024-06-03 18:42:00 98 /min Connie Chatmanybo ld - External Body height 2024-03-13 19:50:[address] [facility] Body weight 2024-03-13 19:50:[address] [facility] BMI 2024-03-13 19:50:00 35.11 kg/m2 [facility] Systolic blood pressure 2024-02-19 21:14:00 130 mm[Hg] Connie Seybo ld - External Diastolic blood pressure 2024-02-19 21:14:00 70 mm[Hg] Connie Seybo ld - External Heart rate 2024-02-19 20:43:00 71 /min Kelse y Seybold - External Respiratory rate 2024-02-19 20:43:00 16 /min Connie Seybold - External Body height 2024-02-19 20:43:00 167.6 cm Silva ey Seybold - External Body weight 2024-02-19 20:43:00 97.07 kg Silva ey Seybold - External BMI 2024-02-19 20:43:00 34.54 kg/m2 Silva ey Seybold - External Oxygen saturation in Arterial blood by Pulse oximetry 2024-02-19 20:43:00 97 /min Connie Seybo ld - External Systolic blood pressure 2023-12-21 21:18:00 138 mm[Hg] Connie Seybo ld - External Diastolic blood pressure 2023-12-21 21:18:00 70 mm[Hg] Connie Seybo ld - External Heart rate 2023-12-21 21:06:00 59 /min Kelse y Seybold - External Respiratory rate 2023-12-21 21:06:00 15 /min Connie Seybold - External Body height 2023-12-21 21:06:00 167.6 cm Silva ey Seybold - External Body weight 2023-12-21 21:06:00 100.245 kg Silva ey Seybold - External BMI 2023-12-21 21:06:00 35.67 kg/m2 Silva ey Seybold - External Oxygen saturation in Arterial blood by Pulse oximetry 2023-12-21 21:06:00 100 /min Connie Chatmanybo ld - External Systolic blood pressure 2023-11-24 15:43:00 148 mm[Hg] Connie Seybo ld - External Diastolic blood pressure 2023-11-24 15:43:00 86 mm[Hg] Connie Chatmanybo ld - External Heart rate 2023-11-24 15:38:00 68 /min Richyse y Seybold - External Body temperature 2023-11-24 15:38:00 36.56 Ayleen Connie Seybold - External Respiratory rate 2023-11-24 15:38:00 18 /min Connie Seybold - External Body height 2023-11-24 15:38:00 167.6 cm Silva ey Seybold - External Body weight 2023-11-24 15:38:00 98.884 kg Silva ey Seybold - External BMI 2023-11-24 15:38:00 35.19 kg/m2 Silva ey Seybold - External Oxygen saturation in Arterial blood by Pulse oximetry 2023-11-24 15:38:00 98 /min Connie Chatmanybo ld - External Body height 2023-09-21 20:32:[address] [facility] Body weight 2023-09-21 20:32:[address] [facility] BMI 2023-09-21 20:32:00 31.96 kg/m2 [facility] Body weight 2023-05-19 14:23:[address] [facility] BMI 2023-05-19 14:23:00 33.89 kg/m2 [facility] Systolic blood pressure 2022-10-24 14:17:00 138 mm[Hg] Connie Chatmanybo ld - External Diastolic blood pressure 2022-10-24 14:17:00 82 mm[Hg] Connie Chatmanybo ld - External Heart rate 2022-10-24 14:17:00 82 /min Richyse y Seybold - External Body height 2022-10-24 14:17:00 167.6 cm Silva kan Seybold - External Body weight 2022-10-24 14:17:00 100.245 kg Silva ey Seybold - External BMI 2022-10-24 14:17:00 35.67 kg/m2 Silva ey Seybold - External Systolic blood pressure 2022-09-08 15:33:00 124 mm[Hg] Connie Chatmanybo ld - External Diastolic blood pressure 2022-09-08 15:33:00 84 mm[Hg] Connie Jungo ld - External Heart rate 2022-09-08 15:33:00 80 /min Victor M ho Seybold - External Body temperature 2022-09-08 15:33:00 36.56 Ayleen Connie Chatmanybold - External Respiratory rate 2022-09-08 15:33:00 20 /min Connie Chatmanybold - External Oxygen saturation in Arterial blood by Pulse oximetry 2022-09-08 15:33:00 98 /min Connie Jungo ld - External Heart rate 2022-08-23 20:33:00 83 /min [facility] Respiratory rate 2022-08-23 20:33:00 12 /min [facility] Oxygen saturation in Arterial blood by Pulse oximetry 2022-08-23 20:33:00 96 /min [facility] Systolic blood pressure 2022-08-23 20:31:00 149 mm[Hg] [facility] Diastolic blood pressure 2022-08-23 20:31:00 98 mm[Hg] [facility] Body temperature 2022-08-23 19:20:00 37 Ayleen [facility] Body height 2022-08-18 22:00:[address] [facility] Body weight 2022-08-18 22:00:[address] [facility] BMI 2022-08-18 22:00:00 33.89 kg/m2 [facility] Systolic blood pressure 2022-08-23 19:35:00 119 mm[Hg] [facility] Diastolic blood pressure 2022-08-23 19:35:00 87 mm[Hg] [facility] Heart rate 2022-08-23 19:35:00 77 /min [facility] Respiratory rate 2022-08-23 19:35:00 15 /min [facility] Oxygen saturation in Arterial blood by Pulse oximetry 2022-08-23 19:35:00 98 /min [facility] Body temperature 2022-08-23 19:20:00 37 Ayleen [facility] Body height 2022-08-18 22:00:[address] [facility] Body weight 2022-08-18 22:00:[address] [facility] BMI 2022-08-18 22:00:00 33.89 kg/m2 [facility] Systolic blood pressure 2022-08-17 21:02:00 154 mm[Hg] Connie Seybo ld - External Diastolic blood pressure 2022-08-17 21:02:00 84 mm[Hg] Connie Seybo ld - External Heart rate 2022-08-17 21:02:00 93 /min Kelse y Seybold - External Body temperature 2022-08-17 21:02:00 36 Ayleen Connie Seybold - External Respiratory rate 2022-08-17 21:02:00 16 /min Connie Seybold - External Body height 2022-08-17 21:02:00 167.6 cm Silva ey Seybold - External Body weight 2022-08-17 21:02:00 98.884 kg Silva ey Seybold - External BMI 2022-08-17 21:02:00 35.19 kg/m2 Silva ey Seybold - External Systolic blood pressure 2021-09-23 21:26:00 135 mm[Hg] Connie Seybo ld Diastolic blood pressure 2021-09-23 21:26:00 74 mm[Hg] Connie Seybo ld Heart rate 2021-09-23 21:26:00 76 /min Victor M Pfeiffer Body temperature 2021-09-23 21:26:00 36.44 Ayleen Connie Pfeiffer Respiratory rate 2021-09-23 21:26:00 14 /min Connie Pfeiffer Body weight 2021-09-23 21:26:00 94.983 kg Silva kan Seybkarma BMI 2021-09-23 21:26:00 32.80 kg/m2 Silvaoziel kan Seybkarma BP Diastolic 2021-01-06 00:00:00 93 mm[Hg] [facility] Height 2021-01-06 00:00:00 66.5 [in_i] [facility] BMI (Body Mass Index) 2021-01-06 00:00:00 33.2 kg/m2 [facility] BP Systolic 2021-01-06 00:00:00 135 mm[Hg] [facility] Body Weight 2021-01-06 00:00:00 208.6 [lb_av] [facility] BP Diastolic 2020-05-29 00:00:00 97 mm[Hg] [facility] Height 2020-05-29 00:00:00 66.5 [in_i] [facility] BMI (Body Mass Index) 2020-05-29 00:00:00 34.3 kg/m2 [facility] BP Systolic 2020-05-29 00:00:00 126 mm[Hg] [facility] Body Weight 2020-05-29 00:00:00 216 [lb_av] [facility] Procedures Procedure Date / Time Performed Performing Clinician Source INSERTION OF PACEMAKER LEAD INTO RIGHT ATRIUM, PER 2025-01-15 00:00:00 [email or web address] [facility] INSERT PACE. DUAL AJAY IN CHEST SUBCU/FASCIA, OPEN 2025-01-15 00:00:00 [email or web address] [facility] INSERTION OF PACEMAKER LEAD INTO R VENTRICLE, PERC 2025-01-15 00:00:00 CUEJO.01 [facility] XR HIPS 2 VW RIGHT 2023-05-19 14:12:27 Sydney Jonas [facility] PATIENT FINANCIAL POLICY 2023-05-19 13:39:01 Doctor Unassigned, [facility] CHOLECYSTECTOMY LAPAROSCOPY WITH CHOLANGIOGRAM 2022-08-23 17:32:00 Charlotte Mcdonald [facility] PATIENT QUESTIONNAIRE 2022-08-23 06:01:00 Doctor Unassigned, [facility] EXTERNAL PROVIDER RECORDS 2022-08-18 06:01:00 Do ctor Unassigned, [facility] EXTERNAL PROVIDER RECORDS 2022-08-18 06:01:00 Do ctor Unassigned, [facility] US ABDOMEN LIMITED 2022-08-18 00:15:03 Requisition, Pa per [facility] US ABDOMEN LIMITED 2022-08-18 00:15:03 Requisition, Pa per [facility] ASSIGNMENT OF BENEFITS 2022-08-17 22:52:32 Docto r Unassigned, [facility] MAMMO, screening, digital, bilateral 2021-01-06 00:00:00 [facility] Colonoscopy 2009-09-18 00:00:00 [facility] Egd 2003-09-18 00:00:00 [facility] Appendectomy 1995-09-18 00:00:00 [facility] Encounters Start Date/Time End Date/Time Encounter Type Admission Type Attending [facility] Care Facility Care Department Encounter ID Source 2025-08-25 16:00:00 2025-08-25 16:00:00 Outpatient FAUSTO HOOVER [id number] [facility] 2025-05-08 00:00:00 2025-05-08 00:00:00 Outpatient FILIBERTO TREVINO [id number] [facility] 2025-05-08 00:00:00 2025-05-08 00:00:00 Outpatient FILIBERTO TREVINO [id number] [facility] 2025-03-10 16:15:00 2025-03-10 16:15:00 Outpatient FAUSTO HOOVER [id number] Connie [facility] 2025-01-21 00:00:00 2025-01-21 00:00:00 Outpatient MD CONNIE BORGES [id number] [facility] 2025-01-20 16:30:00 2025-01-20 16:30:00 Outpatient PREZASFAUSTO CONNIE PACHECO [id number] Connie [facility] 2025-01-15 09:33:00 2025-01-16 16:14:00 Inpatient Chaz Barba [facility]01 [id number] [facility] 2025-01-16 00:00:00 2025-01-16 00:00:00 Outpatient PREZAS FAUSTO PACHECO [id number] Connie [facility] 2025-01-13 15:00:00 2025-01-13 15:00:00 Outpatient PREZAS FAUSTO PACHECO [id number] Connie Margarette 2025-01-07 08:30:00 2025-01-07 08:30:00 Outpatient LABEli CONNIE PACHECO [id number] [facility] 2025-01-07 00:00:00 2025-01-07 00:00:00 Outpatient MD CONNIE BORGES [id number] Connie [facility] 2025-01-06 16:00:00 2025-01-06 16:00:00 [facility]patient [facility]ORAL[facility] [id number] [facility]25-01-06 00:00:00 2025-01-06 00:00:00 Outpatient PREZAS FAUSTO PACHECO [id number] [facility] 2024-12-25 00:00:00 2024-12-25 00:00:00 Outpatient PREZAS FAUSTO PACHECO [id number] [facility] 2024-12-10 09:30:00 2024-12-10 09:30:00 Outpatient PREZAS FAUSTO PACHECO [id number] Connie [facility] 2024-11-07 00:00:00 2024-11-07 00:00:00 Outpatient PREZAS FAUSTO PACHECO [id number] Connie [facility] 2024-11-07 00:00:00 2024-11-07 00:00:00 Outpatient MD CONNIE BORGES [id number] Connie Pfeiffer 2024-11-07 00:00:00 2024-11-07 00:00:00 Outpatient FAUSTO HOOVER CONNIE PACHECO [id number] Connie Pfeiffer 2024-11-07 00:00:00 2024-11-07 00:00:00 Outpatient FILIBERTO TREVINO CONNIE PACHECO [id number] Connieporter Pfeiffer 2024-10-30 15:34:39 2024-10-30 23:59:00 Outpatient O SYDNEY JONAS [facility] [id number] [facility] 2024-10-30 15:34:39 2024-10-30 23:59:00 Hospital Encounter Sydney Jonas [facility] 1.2.840.114 350.1.13.10 4.2.7.2.686 [id number] [facility] 2024-10-30 15:45:00 2024-10-30 16:50:19 Office Visit Sydney Jonas [facility] 1.2.840.114 350.1.13.10 4.2.7.2.686 [id number] [facility] 2024-10-18 16:30:00 2024-10-18 16:30:00 Outpatient PREZAOziel, FAUSTO CONNIE PACHECO [id number] [facility] 2024-08-02 08:30:00 2024-08-02 08:30:00 Outpatient PREZAOziel FAUSTO PACHECO [id number] [facility] 2024-07-02 09:30:00 2024-07-02 09:30:00 Outpatient PREZAOziel FAUSTO PACHECO [id number] [facility] 2024-06-27 00:00:00 2024-06-27 00:00:00 Outpatient PREZAOziel FAUSTO PACHECO [id number] [facility] 2024-06-21 08:10:00 2024-06-21 08:10:00 Outpatient OLIVER BAKERSEY [id number] Connie [facility] 2024-06-10 11:45:00 2024-06-10 11:45:00 Outpatient BRIDGETT DAVIS CONNIE [id number] Connie Pfeiffer 2024-06-03 14:00:00 2024-06-03 14:00:00 Outpatient FILIBERTO TREVINO CONNIE [id number] [facility] 2024-05-31 00:00:00 2024-05-31 00:00:00 Outpatient PREZAFAUSTO Lawrence CONNIE CONNIE [id number] Connie Pfeiffer 2024-05-22 16:00:00 2024-05-22 16:00:00 Outpatient PREZAS, FAUSTO CONNIE CONNIE [id number] Connie [facility] 2024-05-02 00:00:00 2024-05-02 00:00:00 Outpatient PREZAS, FAUSTO CONNIE PACHECO [id number] [facility] 2024-04-24 10:00:00 2024-04-24 10:00:00 Outpatient FT39 CONNIE PACHECO [id number] Connie [facility] 2024-04-24 09:00:00 2024-04-24 09:00:00 Outpatient INJ, STEPHANIE CONNIE CONNIE [id number] [facility] 2024-03-13 16:15:00 2024-03-13 16:15:00 Office Visit Sydney Jonas [facility] 1.2.840.114 350.1.13.10 4.2.7.2.686 [id number] [facility] 2024-03-13 16:15:00 2024-03-13 15:22:26 Outpatient R SYDNEY JONAS [facility] [id number] [facility] 2024-02-23 00:00:00 2024-02-23 00:00:00 Outpatient PREZASFAUSTO CONNIE PACHECO [id number] [facility] 2024-02-19 16:30:00 2024-02-19 16:30:00 Outpatient LAB90 CONNIE BAKERSEY [id number] [facility] 2024-02-19 16:15:00 2024-02-19 16:15:00 Outpatient FAUSTO HOOVER CONNIE [id number] [facility] 2023-12-21 16:00:00 2023-12-21 16:00:00 Outpatient PREFAUSTO CAMARILLO CONNIE [id number] [facility] 2023-12-21 00:00:00 2023-12-21 00:00:00 Outpatient PREFAUSTO CAMARILLO CONNIE [id number] [facility] 2023-12-21 00:00:00 2023-12-21 00:00:00 Outpatient FILIBERTO TREVINOPORTER PACHECO [id number] [facility] 2023-12-15 11:00:00 2023-12-15 11:00:00 Outpatient FILIBERTO TREVINO CONNIE PACHECO [id number] [facility] 2023-12-04 00:00:00 2023-12-04 00:00:00 Outpatient FILIBERTO TREVINO CONNIE PACHECO [id number] [facility] 2023-11-27 10:50:00 2023-11-27 10:50:00 Outpatient LAB90 CONNIE CONNIE [id number] [facility] 2023-11-24 09:30:00 2023-11-24 09:30:00 Outpatient FILIBERTO TREVINO CONNIE PACHECO [id number] [facility] 2023-09-28 13:15:00 2023-09-28 13:15:00 Outpatient R SYDNEY JONAS [facility] [id number] [facility] 2023-09-21 14:45:00 2023-09-21 14:45:00 Office Visit Sydney Jonas [facility] 1.2.840.114 350.1.13.10 4.2.7.2.686 [id number] [facility] 2023-09-21 14:45:00 2023-09-21 14:41:30 Outpatient R SYDNEY JONAS [facility] [id number] [facility] 2023-05-19 08:59:13 2023-05-19 23:59:00 Hospital Encounter Sydney Jonas [facility] 1.2.840.114 350.1.13.10 4.2.7.2.686 [id number] [facility] 2023-05-19 09:00:00 2023-05-19 12:07:56 Outpatient R SYDNEY JONAS [facility] [id number] [facility] 2023-05-19 09:00:00 2023-05-19 12:07:56 Office Visit Sydney Jonas [facility] 1.2.840.114 350.1.13.10 4.2.7.2.686 [id number] [facility] 2023-05-19 00:00:00 2023-05-19 00:00:00 Orders Only Doctor Unassigned, Heeney [facility] 1.2.840.114 350.1.13.10 4.2.7.2.686 [id number] [facility] 2023-03-24 08:00:00 2023-03-24 08:00:00 Outpatient SUSAN CHEN [id number] Connie Pfeiffer 2023-02-15 10:30:00 2023-02-15 10:30:00 Outpatient BLAS GU [id number] Connie Pfeiffer 2022-12-06 00:00:00 2022-12-06 00:00:00 Outpatient MD CONNIE BORGES [id number] Connie [facility]fe[facility] 2022-11-07 00:00:00 2022-11-07 00:00:00 Outpatient MD CONNIE BORGES [id number] Connie [facility]feiffer 2022-10-24 08:30:00 2022-10-24 08:30:[address] CONNIE PACHECO [id number] [facility] 2022-10-17 09:30:00 2022-10-17 09:30:00 Outpatient SUSAN CHEN CONNIE PACHECO [id number] [facility] 2022-10-17 00:00:00 2022-10-17 00:00:00 Outpatient MD CONNIE BORGES [id number] [facility] 2022 00:00:00 2022 00:00:00 Outpatient PATTIE BABB [id number] [facility] 2022-09-08 10:45:00 2022-09-08 10:45:00 Outpatient OLIVER CONNIE PACHECO [id number] [facility] 2022-09-08 10:00:00 2022-09-08 10:00:00 Outpatient PATTIE BABB [id number] [facility] 2022-08-23 10:53:00 2022-08-23 14:45:00 Hospital Encounter Charlotte Mcdonald [facility] 1.2.840.114 350.1.13.10 4.2.7.2.686 [id number] [facility] 2022-08-23 10:53:00 2022-08-23 14:45:00 Outpatient CHARLOTTE PHILLIPS HILA RICHARD [id number] [facility] 2022-08-23 11:45:00 2022-08-23 13:49:00 Surgery Charlotte Mcdonald [facility] 1.2.840.114 350.1.13.10 4.2.7.2.686 [id number] [facility] 2022-08-23 00:00:00 2022-08-23 00:00:00 Outpatient FAUSTO HOOVER [id number] [facility] 2022-08-23 00:00:00 2022-08-23 00:00:00 Orders Only Doctor Unassigned, Heeney [facility] 1.2.840.114 350.1.13.10 4.2.7.2.686 [id number] [facility] 2022-08-17 17:00:00 2022-08-17 23:59:00 Hospital Encounter Radiology [facility] 1.2.840.114 350.1.13.10 4.2.7.2.686 [id number] [facility] 2022-08-17 16:55:47 2022-08-17 16:59:00 Hospital Encounter Radiology [facility] 1.2.840.114 350.1.13.10 4.2.7.2.686 [id number] [facility] 2022-08-17 00:00:00 2022-08-17 16:59:00 Outpatient R RADIOLOGY [facility] [id number] [facility] 2022-08-17 15:35:00 2022-08-17 15:35:00 Outpatient LAB90 CONNIE PACHECO [id number] [facility] 2022-08-17 15:00:00 2022-08-17 15:00:00 Outpatient FAUSTO HOOVER [id number] [facility] 2022-08-17 00:00:00 2022-08-17 00:00:00 Orders Only Doctor Unassigned, Heeney [facility] 1.2840.114 350.1.13.10 4.2.7.2.686 [id number] [facility] 2021-11-01 00:00:00 2021-11-01 00:00:00 Patient Secure Msg Doctor Unassigned, Heeney [facility] 1.2.840.114 350.1.13.10 4.2.7.2.686 [id number] [facility] 2021-10-28 00:00:00 2021-10-28 00:00:00 Telephone Team, [facility] 1.2.840.114 350.1.13.10 4.2.7.2.686 [id number] [facility] 2021-09-23 16:00:00 2021-09-23 16:30:00 Office Visit Pattie Babb 1.2.840.114 350.1.13.13 1.2.7.2.686 [id number] Connie Pfeiffer 2021-01-06 00:00:00 2021-01-06 00:00:00 Lashell Us, TRACK INSPECTOR: [address], [address], [place] [address] , Ph. [facility] _KIRSTY_Rivas riley ([facility]) [id number] [facility] 2020-12-07 08:20:00 2020-12-07 08:20:00 Outpatient R [facility] [id number] [facility] 2020-12-07 00:00:00 2020-12-07 00:00:00 Outpatient GCCOVIDV [facility] [id number] [facility] 2020-12-05 15:00:00 2020-12-05 15:00:00 Outpatient LORETO AVINA [facility] [id number] [facility] 2020-11-14 10:20:00 2020-11-14 10:20:00 Outpatient LORETO AVINA [facility] [id number] [facility] 2020-11-14 00:00:00 2020-11-14 00:00:00 Outpatient GCCOVIDV [facility] [id number] [facility] 2020-05-29 00:00:00 2020-05-29 00:00:00 Janie Lopez MD: [address] [facility] [address], [place] [address] , Ph. [facility]_HOU_Lola Ruiz [id number] [facility] 2020-02-20 00:00:00 2020-02-20 00:00:00 Telephone Henri Bailey [facility] 1.2.840.114 350.1.13.10 4.2.7.2.686 [id number] [facility] 2020-02-19 09:45:00 2020-02-19 09:45:00 Outpatient R UNKNOWN, ATTENDING [facility] [id number] [facility] 2020-02-19 00:00:00 2020-02-19 00:00:00 Letter (Out) Doctor Unassigned, Heeney [facility] 1.2.840.114 350.1.13.10 4.2.7.2.686 [id number] [facility] Results Test Description Test Time Test Comments Results Result Co mments Source TSH REFLEX TO [id number] 08:16:00* Test Item Value Reference Range Interpretation Comme nts TSH REFLEX TO FT4 (test code = TSHREFLEX) 3.54 IU/mL 0.42-5.47 N CBC W/AUTO [id number] 07:07:00* Test Item Value Reference Range Interpretation Comme nts WHITE BLOOD CELL (test code = WBC) 8.1 x10 3/uL 4.5-11.0 N RED BLOOD CELL (test code = RBC) 4.39 x10 6/uL 3.54-5.02 N HEMOGLOBIN (test code = HGB) 13.0 g/dL 11.0-15.0 N HEMATOCRIT (test code = HCT) 39.7 % 33.0-45.0 N MEAN CELL VOLUME (test code = MCV) 90.4 fL 81.0-99.0 N MEAN CELL HGB (test code = MCH) 29.6 pg 27.0-33.0 N MEAN CELL HGB CONCETRATION (test code = MCHC) 32.7 g/dL 33.0-37.0 L RED CELL DISTRIBUTION WIDTH CV (test code = RDW) 14.2 % 11.5-14.5 N RED CELL DISTRIBUTION WIDTH SD (test code = RDW-SD) 47.2 fL 37.0-54.0 N PLATELET COUNT (test code = PLT) 208 x10 3/uL 150-400 N MEAN PLATELET VOLUME (test c ode = MPV) 9.6 fL 7.0-9.0 H NEUTROPHIL % (test code = NT%) 61.5 % 56.0-77.0 N IMMATURE GRANULOCYTE % (test code = IG%) 0.2 % 0.0-2.0 N LYMPHOCYTE % (test code = LY%) 28.3 % 14.0-32.0 N MONOCYTE % (test code = MO%) 7.1 % 4.8-9.0 N EOSINOPHIL % (test code = EO%) 2.7 % 0.3-3.7 N BASOPHIL % (test code = BA%) 0.2 % 0.0-2.0 N NUCLEATED RBC % (test code = NRBC%) 0.0 % 0-0 N NEUTROPHIL # (test code = NT#) 5.00 x10 3/uL 2.0-7.6 N IMMATURE GRANULOCYTE # (test code = IG#) 0.02 x10 3/uL 0.00-0.03 N LYMPHOCYTE # (test code = LY#) 2.30 x10 3/uL 1.0-3.8 N MONOCYTE # (test code = MO#) 0.58 x10 3/uL 0.1-0.8 N EOSINOPHIL # (test code = EO#) 0.22 x10 3/uL 0.0-0.2 H BASOPHIL # (test code = BA#) 0.02 x10 3/uL 0.0-0.2 N NUCLEATED RBC # (test code = NRBC#) 0.00 x10 3/uL 0.0-0.1 N PROTHROMBIN [id number] 10:38:00* Test Item Value Reference Range Interpretation Comme nts PROTHROMBIN TIME PATIENT (test code = PTP) 11.0 SECONDS 9.3-12.9 N INTERNATIONAL NORMAL RATIO (test code = INR) 1.0 0.8-1.2 N TARGET INR BY INDICATION Indication INR1. Prophylaxis of venous thrombosis 2.0 - 3.0 (orthopedic surgery), Prophylaxis of venous thrombosis (other than high-risk surgery), Treatment of Deep Vein Thrombosis/Pulmonary Embolism, Prevention of systemic embolism - Tissue heart valves, Acute Myocardial Infarction (to prevent systemic embolism), Valvular heart disease, Atrial Fibrillation, Bileaflet mechanical valve in aortic position.2. Mechanical prosthetic valves (high risk), 2.5 - 3.5 Presence of Lupus Anticoagulant or Antiphospholipid Antibodies, Prevention of systemic embolism - Acute Myocardial Infarction (to prevent recurrent infarct). [id number] 10:14:00* Test Item Value Reference Range Interpretation Comme nts PHOSPHOROUS (test code = PHOS) 3.4 MG/DL 2.5-4.9 N [id number] 10:14:00* Test Item Value Reference Range Interpretation Comme nts MAGNESIUM (test code = MAG) 1.84 mg/dL 1.6-2.6 N BASIC METABOLIC [id number] 08:50:00* Test Item Value Reference Range Interpretation Comme nts SODIUM (test code = NA) 142 mEq/L 134-147 N POTASSIUM (test code = K) 4.2 mEq/L 3.4-5.0 N CHLORIDE (test code = CL) 107 mEq/L 100-108 N CARBON DIOXIDE (test code = CO2) 24 mEq/l 21-33 N ANION GAP (test code = GAP) 15 0-20 N GLUCOSE (test code = GLU) 112 mg/dL 77-141 N BLOOD UREA NITROGEN (test code = BUN) 15 mg/dL 7-25 N GLOMERULAR FILTRATION RATE (test code = GFR) 81.7 80-90 N The Glomerular Filtration Rate is a calculated parameterbased on serum Creatinine, patient age and sex. GFR valuesless than 60 mL/min/1.73 square meters are indicative ofChronic Kidney Disease. Values less than 15 mL/min/1.73square meters indicate Kidney failure. The calculation forGFR is based on the CKD-EPI (2020) calculation. This formulais race indifferent and is the recommended formula for GFRby the National Kidney Foundation for Adults.The GFR will not calculate if the sex is unknown or if thepatient's age is <18 years. CREATININE (test code = CREAT) 0.8 mg/dL 0.6-1.3 N CALCIUM (test code = CA) 9.7 mg/dL 8.0-10.5 N HEPATIC FUNCTION [id number] 08:50:00* Test Item Value Reference Range Interpretation Comme nts TOTAL PROTEIN (test code = PROT) 6.9 g/dL 5.7-8.2 N Note change in REFERENCE RANGE due to change in REAGENT. ALBUMIN (test code = ALB) 3.50 g/dL 3.4-5.0 N BILIRUBIN TOTAL (test code = BILT) 0.30 mg/dL 0.0-1.0 N BILIRUBIN DIRECT (test code = BILD) < 0.10 MG/DL 0.1-0.3 L BILIRUBIN INDIRECT (test code = BILIND) 0.20 MG/DL SGOT/AST (test code = AST) 19 IUnit/L 8-34 N SGPT/ALT (test code = ALT) 22 IUnit/L 10-49 N ALKALINE PHOSPHATASE TOTAL (test code = ALKP) 84 IUnit/L 20-125 N TROP-I HIGH [id number] 08:50:00* Test Item Value Reference Range Interpretation Comme nts TROP-I HIGH SENSITIVITY (test code = TROPIHS) 4 ng/L 0-34 N CAUTION: Units o f the current test methodology (ng/L) differfrom the prior test methodology (ng/mL) by a factor of 1000. 99th Percentile Upper Reference Limit (URL): Females: 34 ng/LMales: 54 ng/L In order to distinguish acute elevations of high sensitivitytroponin from other clinical conditions, the FourthUniversal Definition of Myocardial Infarction stressesclinical assessment and the demonstration of a rise and/orfall in serial troponin results above the URL. These results were obtained using Siemens AteTerapio IM TnIHreagent. Results from different methodologies should not becompared to one another as quantitative results and URLs mayvary by method. [id number] 08:44:00* Test Item Value Reference Range Interpretation Comme nts D-DIMER (test code = DDIMER) 415 ng/mlFEU <=500 N THROMBOSIS AND/O R PULMONARY EMBOLISM AND THE CLINICAL CUT- OFF VALUE FOR EXCLUSION (500 ng/mL FEU) OF THESE CONDITIONSIS VALIDATED BY THE VARNISH BLENDER OF THE METHOD. A NEGATIVE D-DIMER RESULT WHEN COMBINED WITH A CLINICALASSESSMENT OF LOW PRETEST PROBABILITY HAS BEEN SHOWN TO HAVEA HIGH NEGATIVE PREDICTIVE VALUE OF DVT OR PE. D-DIMER VALUES >500 ng/mL FEU ARE NOT DIAGNOSTIC FOR DVT, PEor DIC WITHOUT OTHER CONFIRMATORY TESTS AND APPROPRIATECLINICAL EUALUATIONS. CBC W/AUTO [id number] 08:36:00* Test Item Value Reference Range Interpretation Comme nts WHITE BLOOD CELL (test code = WBC) 8.9 x10 3/uL 4.5-11.0 N RED BLOOD CELL (test code = RBC) 4.58 x10 6/uL 3.54-5.02 N HEMOGLOBIN (test code = HGB) 13.3 g/dL 11.0-15.0 N HEMATOCRIT (test code = HCT) 41.3 % 33.0-45.0 N MEAN CELL VOLUME (test code = MCV) 90.2 fL 81.0-99.0 N MEAN CELL HGB (test code = MCH) 29.0 pg 27.0-33.0 N MEAN CELL HGB CONCETRATION (test code = MCHC) 32.2 g/dL 33.0-37.0 L RED CELL DISTRIBUTION WIDTH CV (test code = RDW) 14.0 % 11.5-14.5 N RED CELL DISTRIBUTION WIDTH SD (test code = RDW-SD) 46.4 fL 37.0-54.0 N PLATELET COUNT (test code = PLT) 238 x10 3/uL 150-400 N MEAN PLATELET VOLUME (test c ode = MPV) 9.4 fL 7.0-9.0 H NEUTROPHIL % (test code = NT%) 55.4 % 56.0-77.0 L IMMATURE GRANULOCYTE % (test code = IG%) 0.3 % 0.0-2.0 N LYMPHOCYTE % (test code = LY%) 32.9 % 14.0-32.0 H MONOCYTE % (test code = MO%) 7.3 % 4.8-9.0 N EOSINOPHIL % (test code = EO%) 3.5 % 0.3-3.7 N BASOPHIL % (test code = BA%) 0.6 % 0.0-2.0 N NUCLEATED RBC % (test code = NRBC%) 0.0 % 0-0 N NEUTROPHIL # (test code = NT#) 4.95 x10 3/uL 2.0-7.6 N IMMATURE GRANULOCYTE # (test code = IG#) 0.03 x10 3/uL 0.00-0.03 N LYMPHOCYTE # (test code = LY#) 2.94 x10 3/uL 1.0-3.8 N MONOCYTE # (test code = MO#) 0.65 x10 3/uL 0.1-0.8 N EOSINOPHIL # (test code = EO#) 0.31 x10 3/uL 0.0-0.2 H BASOPHIL # (test code = BA#) 0.05 x10 3/uL 0.0-0.2 N NUCLEATED RBC # (test code = NRBC#) 0.00 x10 3/uL 0.0-0.1 N Notes Date/Time Note Provider Source 2025-03-10 16:09:16 Chief Complaint Patient presents with OTHER 7 week follow up on pacemaker being placed Elsa Orr [facility] 2025-01-20 16:35:28 Chief Complaint Patient presents with OTHER 1 week follow up Elsa Orr [facility] 2025-01-16 11:52:00 [facility] Hospitalist Discharge Summary REPORT#:[id number] REPORT STATUS: Signed REPORT INITIALIZATION DATE:01/16/25 TIME: 1152 PATIENT: BHUPENDRA CALIXTO UNIT #: [id number] ROOM/BED: [place] [id number] : [birth year] AGE: 64 SEX: F ATTEND: Chaz Galicia MD ADM AUTHOR: Susi Mora MD R1 REPT SERVICE DT/TIME: 01/16/25 1152 * ALL edits or amendments must be made on the electronic/computer document * Susi Mora 01/16/25 1152: General Information Date of admission: Observation Start Date: Date of admission: 01/15/25 Discharge date: 01/16/25 Discharge diagnosis: Symptomatic bradycardia AV block Hospital course: Assessment and plan: Patient is a 64 year old female with PMHx of HTN, GERD and PE (2014, took eliquis for 6 months) presented to the ED with complaints of chest pain, dizziness and fatigue. Per patient, she was in her usual state of health 2 days ago when she went for a routine follow up to her PCP and was found to be bradycardic. Her PCP then referred her to a chip machine operator who further referred her to an EP physician for PPM evaluation. Patient had a tele visit with Dr. Fry yesterday, who was initially planning outpatient pacemaker placement, however the patient got symptomatic this morning and was advised to go to the ED. Patient said she has left sided chest pain occuring at rest with no radiation. On evaluation, patient was bradycardic with HR in 40s and EKG was significant for a second degree AV block (Mobitz type 2). EP consulted. Patient is scheduled undergo PPM placement today. #Second degree AV block (Mobitz type II) #Symptomatic bradycardia - EKG done - Trops and D dimer negative - Continue telemetry monitoring - EP consult - S/P PPM - Hold anticoagulation - Avoid AV brenda blocking meds - TSH normal - Start Doxycycline 100mg PO for 10 days #HTN - TRACK INSPECTOR elevated on presentation likely due to stress - Resume home med losartan 25 mg daily - IV hydralazine 10 mg Q6h prn - Monitor BP #GERD - Resume home med when reconciled #Hx of PE - Patient not on eliquis Diet: Cardiac DVT prophylaxis: Only SCDs, hold AC Code status: Full code Disposition: Patient cleared for DC home by EP. Continue prophylactic antibiotics. Outpatient follow up in 1 to 2 weeks. Pt. condition on discharge: improved Med Rec Med Rec Discharge meds: Continue taking these medications: LOSARTAN (LOSARTAN) 25 MG TAB 25 MILLIGRAM ORAL DAILY. OMEPRAZOLE ER (PriLOSEC) 40 MG CAP.DR 40 MILLIGRAM ORAL DAILY. Start taking the following new medications: DOXYCYCLINE HYCLATE (VIBRA-TAB) 100 MG TAB 100 MILLIGRAM ORAL EVERY 12 HOURS. Days = 10 Qty = 20 No Refills traMADol (ULTRAM) 50 MG TAB 50 MILLIGRAM ORAL EVERY 6 HOURS NEEDED. as needed for ACUTE PAIN Qty = 15 No Refills Objective VS/I O Last Documented: Result Date Time Pulse Ox 95 01/16 1100 B/P 142/84 01/16 1100 B/P Mean 103.5 01/16 1100 Temp 36.5 01/16 1100 Pulse 66 01/16 1100 Resp 17 01/16 1100 O2 Delivery Room air 01/16 411 24 hour I O ending at 0700: 01/16 0700 01/15 1900 Intake Total Output Total Balance Patient 90 kg Weight Weight Stated/Reported Measurement Method General appearance: alert, awake, oriented Head/Eyes: atraumatic, normocephalic Cardiovascular: normal heart sounds, regular rate rhythm Respiratory: aerating well, clear to auscultation, symmetric expansion, no distress Abdomen: non-tender, soft, no distention Extremities: moves all, no clubbing, no cyanosis, no edema Musculoskeletal: normal inspection Neuro/HR RECEPTIONIST: alert, oriented X 3, normal speech Psychiatry: normal affect, normal mood Results Findings/Data: Laboratory Tests: 01/16 559 Chemistry Sodium (134 - 147 mEq/L) 142 Potassium (3.4 - 5.0 mEq/L) 4.0 Chloride (100 - 108 mEq/L) 108 Carbon Dioxide (21 - 33 mEq/l) 25 Anion Gap (0 - 20) 13 BUN (7 - 25 mg/dL) 11 Creatinine (0.6 - 1.3 mg/dL) 0.7 Glomerular Filtr Rate (80 - 90) 95.9 H Glucose (77 - 141 mg/dL) 103 Calcium (8.0 - 10.5 mg/dL) 9.3 TSH (0.42 - 5.47 IU/mL) 3.54 Hematology WBC (4.5 - 11.0 x10 3/uL) 8.1 RBC (3.54 - 5.02 x10 6/uL) 4.39 Hgb (11.0 - 15.0 g/dL) 13.0 Hct (33.0 - 45.0 %) 39.7 MCV (81.0 - 99.0 fL) 90.4 MCH (27.0 - 33.0 pg) 29.6 MCHC (33.0 - 37.0 g/dL) 32.7 L RDW (11.5 - 14.5 %) 14.2 Plt Count (150 - 400 x10 3/uL) 208 MPV (7.0 - 9.0 fL) 9.6 H Neut % (Auto) (56.0 - 77.0 %) 61.5 Lymph % (Auto) (14.0 - 32.0 %) 28.3 [place] % (Auto) (4.8 - 9.0 %) 7.1 Eos % (Auto) (0.3 - 3.7 %) 2.7 Baso % (Auto) (0.0 - 2.0 %) 0.2 Neut # (Auto) (2.0 - 7.6 x10 3/uL) 5.00 Lymph # (Auto) (1.0 - 3.8 x10 3/uL) 2.30 [place] # (Auto) (0.1 - 0.8 x10 3/uL) 0.58 Eos # (Auto) (0.0 - 0.2 x10 3/uL) 0.22 H Baso # (Auto) (0.0 - 0.2 x10 3/uL) 0.02 Abs Immat Gran (auto) (0.00 - 0.03 x10 3/uL) 0.02 Immature Gran % (0.0 - 2.0 %) 0.2 Nucleated RBC % (0 - 0 %) 0.0 Nucleated RBCs # (Man) (0.0 - 0.1 x10 3/uL) 0.00 Radiology data: Recent Impressions: RADIOLOGY - XR CHEST 1 V 01/15 1733 Report Impression - Status: SIGNED Entered: 01/15/2025 1843 IMPRESSION: No acute findings. Electronically signed by: Petr Judge MD 01/15/2025 06:41 PM T Impression By: [email or web address] - Petr Judge M.D. RADIOLOGY - XR CHEST 1 V 01/16 0834 Report Impression - Status: SIGNED Entered: 01/16/2025 0942 IMPRESSION: 1. No acute disease. Electronically signed by: Fausto Del Cid MD 01/16/2025 09:39 AM T Impression By: [email or web address] - Fausto Del Cid M.D. Discharge Instructions PCP PCP follow-up: PCP: [facility] Discharge to: Home/Self Care Additional Discharge Routines: PCP Follow-Up, Executive Vice President And Chief Financial Officer Follow-Up, Add. instructions Diet: Cardiac Activity: As Tolerated Additional instructions: Outpatient follow up with EP in 1 to 2 weeks. Continue Doxycycline for 10 days. Follow-up Appointments PCP follow-up: PCP: [facility] PCP follow up timeframe: In 1-2 weeks Consulting provider 1: Provider 1: Daniele Santos MD Specialty: Cardiology-Electrophysio Consult follow up timeframe: In 1-2 weeks Chaz Galicia 01/16/25 1858: Attestations Teaching Physician Attestation F/U visit w/o resident: I personally saw the patient and reviewed the resident's note. I agree with the resident's findings and plan. at 1449 at 1900 RPT #:[id number] END OF REPORT [facility] 2025-01-16 10:49:00 [facility] ([facility]) EP Progress Note REPORT#:[id number] REPORT STATUS: Signed REPORT INITIALIZATION DATE:01/16/25 TIME: 1048 PATIENT: BHUPENDRA CALIXTO UNIT #: [id number] ROOM/BED: [place] [id number] : 58 AGE: 64 SEX: F ATTEND: Chaz Galicia MD ADM AUTHOR: Bianca Easley TRACK INSPECTOR REPT SERVICE DT/TIME: 01/16/25 1049 * ALL edits or amendments must be made on the electronic/computer document * Christina Easley 01/16/25 1049: Subjective Chief complaint: fatigue, dizziness Objective Physical Exam HEENT: mucosal membranes moist Neck: non-tender Cardiovascular: CV assessment: bradycardia, irregular rhythm Respiratory: no distress Abdomen: soft Extremities: dry Neuro/HR RECEPTIONIST: alert, oriented X 3 Treatment Prophylaxis Treatment Prophylaxis Oxygen: room air Diagnosis, Assessment Plan Free Text A P: Assessment: 1. Second degree type 2 AV block, 2:1 conduction 2. Symptomatic bradycardia 3. Dizziness, fatigue, chest pain, SOB 4. Weakness 5. HTN EKG - Second degree 2:1 AV block, V shon 49 bpm, QRS 142ms, RBBB Plan/Recommendations: - Continuous tele monitoring - On tele second degree 2:1 AV block, HR 30-40s - Patient had telehealth visit yesterday with Dr. Fry for PPM evaluation, was to be scheduled for outpatient PPM, however she became symptomatic this morning and was advised to come to ED for PPM, her referring physician is Dr. Rodriguez (cardiology) - AVOID AV brenda blocking medications - Second degree AV block 2:1 conduction, symptomatic bradycardia, reports dizziness, lightheadedness, fatigue, weakness, SOB - Recommend PPM - NPO - Hold anticoagulation - Plan for dual chamber PPM implantation today - Doxycycline 100mg BID x 10 days post PPM - FU with Dr. Fry in 1-2 weeks for post op device check Discussed plan and PPM as well as indications, risks, benefits with patient and family, verbalized understanding and would like to proceed with PPM 01/16/25 - s/p dual chamber PPM ([employer]) 01/15/25 - Device interrogation - Ap 11%, Help Desk Administrator 100%, normal lead testing, normal function, no events - Doxycycline 100mg BID x 10 days post PPM - Ok for DC from EP standpoint - FU with Dr. Fry in 1-2 weeks for post op device check - Pressure dressing x [address] Daniele Fry Discussed post op and follow up care - Follow up with Dr. Fry in 1- 2 weeks - Antibiotics as prescribed - Pressure dressing x 72 hours, keep post op dressing clean, dry until follow up - No driving x 2 weeks - No arm above head or elbow above shoulder level x 2 weeks - Sling x 1 week, at night while sleeping x 4-6 weeks - Monitor site for infection, fever - No lifting, pushing, pulling, swinging with affected arm x 6 weeks - Do not itch, scratch, pick, scrub, rub site, no lotions or ointments - Do not submerge incision site in water, no swimming x 6 weeks Total time taken for patient care including chart review, imaging review, lab review, counseling patient and family and formulating management plan 60 minutes CPT 20679 Daniele Santos 01/20/251824: Attestations Physician Attestation Agree w/findings plan: Agree with the findings and plan as documented by Bianca Easley NP at 1051 at 1827 [facility] #:[id number] END OF REPORT [facility] 2025-01-15 21:18:00 [facility] ([facility]) DT Operative Note REPORT#:[id number] REPORT STATUS: Signed REPORT INITIALIZATION DATE:01/15/25 TIME: 2117 PATIENT: BHUPENDRA CALIXTO UNIT #: [id number] ROOM/BED: [place] [id number] : 58 AGE: 64 SEX: F ATTEND: Chaz Galicia MD ADM AUTHOR: Daniele Santos MD REPT SERVICE DT/TIME: 01/15/252117 * ALL edits or amendments must be made on the electronic/computer document * Operative Report Operative Note Note: OPERATION DATE: 01/15/2025 PREOPERATIVE DIAGNOSES: 1. Second degree AV block type II 2. Symptomatic bradycardia 3. Dizziness POSTOPERATIVE DIAGNOSES: 1. Second degree AV block type II 2. Symptomatic bradycardia 3. Dizziness PROCEDURES PERFORMED: 1. Dual-chamber pacemaker placement. 2. Moderate sedation. ATTENDING PHYSICIAN: Daniele Horvath MD. SURGEON: Daniele Horvath MD. CROSS TIE TRAM LOADER: ANESTHESIA: Moderate conscious sedation was provided under my direct supervision by sedation trained nurse. Sedation time 30 minutes, Versed and fentanyl. See report for details. ESTIMATED BLOOD LOSS: 10 mL. DESCRIPTION OF PROCEDURE: After informed consent was obtained, the patient was brought to the electrophysiology laboratory in a fasting and sedated state. Area over her chest was prepped and draped in the usual sterile fashion. A 3 cm skin incision was made in the left subclavicular area. Then, vascular access was obtained x 2 in the left axillary vein. Using the Seldinger technique, we then advanced the lead into the RV septum, targetting the left bundle pacing location , obtaining satisfactory numbers with a R wave 7.2mV capture threshold at 0.6 at 0.4 milliseconds, impedance 834ohms, then the atrial lead advanced to the right atrial appendage, obtained P waves 1.8mV, pacing threshold 0.6 at 0.4 impedance 765ohms, sheaths were removed from the body. Leads secured to fascia using Ethibond. The pocket was irrigated with antibiotic solution using a pulse director money. Hemostasis was meticulous. Leads connected to the device and the entire pacemaker system placed in the pocket. Incision was closed using absorbable sutures and Dermabond. The patient tolerated the procedure well. Procedure was complete. Summary of hardware implanted: 1. The new pacemaker is [employer] serial number [id number] 2. The atrial lead is [employer] serial number [id number] 3. The ventricular lead is [employer] serial number [id number] IMPRESSION: 1. Successful dual-chamber pacemaker placement via left axillary vein. 2. No Complications PLAN: 1. Routine postop monitoring on telemetry. 2. Chest x-ray. 3. Follow up in 1 to 2 weeks. at 2122 RPT #:[id number] END OF REPORT [facility] 2025-01-15 10:29:00 [facility] Hospitalist History Physical REPORT#:[id number] REPORT STATUS: Signed REPORT INITIALIZATION DATE:01/15/25 TIME: 102 PATIENT: BHUPENDRA CALIXTO UNIT #: [id number] ROOM/BED: [place] [phone] : 58 AGE: 64 SEX: F ATTEND: Chaz Galicia MD ADM AUTHOR: Susi Mora MD R1 REPT SERVICE DT/TIME: 01/15/25 1029 * ALL edits or amendments must be made on the electronic/computer document * Susi Mora 01/15/25 1029: History of Present Illness HPI Chief complaint: Chest pain, dizziness, fatigue HPI: Patient is a 64 year old female with PMHx of HTN, GERD and PE (2014, took eliquis for 6 months) presented to the ED with complaints of chest pain, dizziness and fatigue. Per patient, she was in her usual state of health 2 days ago when she went for a routine follow up to her PCP and was found to be bradycardic. Her PCP then referred her to a chip machine operator who further referred her to an EP physician for PPM evaluation. Patient had a tele visit with Dr. Fry yesterday, who was initially planning outpatient pacemaker placement, however the patient got symptomatic this morning and was advised to go to the ED. Patient said she has left sided chest pain occuring at rest with no radiation. On evaluation, patient was bradycardic with HR in 40s and EKG was significant for a second degree AV block (Mobitz type 2). EP consulted. Patient is scheduled undergo PPM placement today. History Past medical history: Reports: GERD/gastritis, Hypertension. Additional medical history: PE in 2015 ( eliquis for 6 months) Past surgical history: Reports: Appendectomy, Cholecystectomy. Additional surgical history: Dental implants Additional family history: Breast, stomach and lung cancer Alcohol use: socially Drug use: Denies recreational drugs Smoking status for patients 13 years old or older: Never Smoker Additional social history: vapes Medication/Allergy-Vaccine Hx Medications: Home Medications: Medication Dose/Rte/Freq Days Qty Entered Last Max Daily Dose Reviewed APIXABAN (ELIQUIS) 10 MG PO BID 01/21/16 Strength: 5 MG TAB 1812 Current Hospital Medications: Anti-Infective Agents Sig/Marie Start time Last Medication Dose Route Stop Time Status Admin Doxycycline 100 MG Q12H 01/15 2100 AC Monohydrate PO 01/25 2059 (DOXYCYCLINE MONOHYDRATE) Gentamicin Sulfate 0 .STK-MED ONE 01/15 1435 DC 01/15 (GARAMYCIN) .ROUTE 1527 Vancomycin HCl 0 .STK-MED ONE 01/15 1435 DC 01/15 (VANCOMYCIN HCL) .ROUTE 1527 Vancomycin HCl 0 .STK-MED ONE 01/15 1435 DC 01/15 (VANCOMYCIN HCL) .ROUTE 1527 Cardiovascular Drugs Sig/Marie Start time Last Medication Dose Route Stop Time Status Admin Lidocaine HCl 0 .STK-MED ONE 01/15 1435 DC 01/15 (LIDOCAINE HCL/PF) .ROUTE 1527 Hydralazine HCl 10 MG Q6H PRN PRN 01/15 1400 AC (APRESOLINE) IV 04/15 1359 Losartan Potassium 25 MG DAILY 01/15 1351 AC (COZAAR) PO 04/15 1350 Hydralazine HCl 10 MG X1ED STA 01/15 0756 DC 01/15 (APRESOLINE) IV 01/15 0757 0910 Central Nervous System Agents Sig/Marie Start time Last Medication Dose Route Stop Time Status Admin Midazolam HCl 0 .STK-MED ONE 01/15 1548 DC (VERSED) .ROUTE Fentanyl Citrate 0 .STK-MED ONE 01/15 1521 DC 01/15 (SUBLIMAZE) .ROUTE 1527 Midazolam HCl 0 .STK-MED ONE 01/15 1521 DC 01/15 (VERSED) .ROUTE 1527 Acetaminophen 650 MG Q4H PRN PRN 01/15 1345 AC 01/15 (TYLENOL) PO 04/15 1344 1346 Hydrocodone Bitart/ 1 TAB Q6H PRN PRN 01/15 1345 AC Acetaminophen PO 01/20 1344 (NORCO 5/325) Morphine Sulfate 4 MG Q4H PRN PRN 01/15 1345 AC (morphine SULFATE) IV 01/20 1344 Acetaminophen 0 .STK-MED ONE 01/15 1339 DC (TYLENOL) .ROUTE Hydrocodone Bitart/ 0 .STK-MED ONE 01/15 1320 DC Acetaminophen PO (NORCO 5/325) Hydrocodone Bitart/ 1 TAB Q4H PRN PRN 01/15 1200 DC Acetaminophen PO 01/20 1159 (NORCO 5/325) Hydrocodone Bitart/ 2 TAB Q4H PRN PRN 01/15 1200 AC Acetaminophen PO 01/20 1159 (NORCO 5/325) Aspirin 324 MG X1ED STA 01/15 0731 DC 01/15 (ASPIRIN) PO 01/15 0732 0822 Electrolytic, Caloric, And Nilam Sig/Marie Start time Last Medication Dose Route Stop Time Status Admin Sodium Bicarbonate 0 .STK-MED ONE 01/15 1436 DC 01/15 (SODIUM BICARBONATE) IV 1527 Gastrointestinal Drugs Sig/Marie Start time Last Medication Dose Route Stop Time Status Admin Ondansetron HCl 4 MG Q4H PRN PRN 01/15 1345 AC (ZOFRAN) IV 04/15 1344 Ondansetron HCl 4 MG ONCE ONE 01/15 1330 DC 01/15 (ZOFRAN) IV 01/15 1331 1323 Ondansetron HCl 0 .STK-MED ONE 01/15 1320 DC (ZOFRAN) IV Pharmaceutical Aids Sig/Marie Start time Last Medication Dose Route Stop Time Status Admin Sterile Water 10 ML .STK-MED ONE 01/15 1435 DC 01/15 (WATER FOR INJECTION) IV 1527 Allergies: Coded Allergies: venom-honey bee (BEE VENOM (HONEY BEE)) (Severe, EDEMA 01/20/16) prednisone (Intermediate, hives 01/15/25) latex (RASH, EDEMA 01/20/16) levofloxacin (From LEVAQUIN) (VOMITING 01/20/16) Review of Systems Constitutional: fatigue. Cardiovascular: chest pain. Neuro: dizziness. All systems rev neg: except as marked Objective General VS/I O: Vital Signs: Date Time Temp Pulse Resp B/P B/P Pulse O2 O2 Flow FiO2 Mean Ox Delivery Rate 01/15 1402 39 167/96 01/15 1100 42 19 175/76 109 98 01/15 1031 42 19 148/69 99 97 01/15 1016 43 21 178/86 123 98 01/15 1001 42 22 180/76 109 98 01/15 0930 42 171/72 104 100 01/15 0916 39 19 170/73 105 99 01/15 0901 49 15 192/81 117 97 01/15 0831 37 19 177/75 108 98 01/15 0816 47 19 168/81 117 97 01/15 0801 39 188/82 118 98 01/15 0730 35.6 41 17 236/102 96 Room air PATIENT WEIGHT: Weight (lb): 198 Weight (oz): 6.66 Weight (kg): 90.000 Medications: Active Meds + DC'd Last 24 Hrs Doxycycline Monohydrate (DOXYCYCLINE MONOHYDRATE) 100 MG Q12H PO Midazolam HCl (VERSED) 0 .STK-MED ONE .ROUTE (DC) Fentanyl Citrate (SUBLIMAZE) 0 .STK-MED ONE .ROUTE (DC) Midazolam HCl (VERSED) 0 .STK-MED ONE .ROUTE (DC) Sodium Bicarbonate (SODIUM BICARBONATE) 0 .STK-MED ONE IV (DC) Gentamicin Sulfate (GARAMYCIN) 0 .STK-MED ONE .ROUTE (DC) Lidocaine HCl (LIDOCAINE HCL/PF) 0 .STK-MED ONE .ROUTE (DC) Sterile Water (WATER FOR INJECTION) 10 ML .STK-MED ONE IV (DC) Vancomycin HCl (VANCOMYCIN HCL) 0 .STK-MED ONE .ROUTE (DC) Vancomycin HCl (VANCOMYCIN HCL) 0 .STK-MED ONE .ROUTE (DC) Hydralazine HCl (APRESOLINE) 10 MG Q6H PRN PRN IV Losartan Potassium (COZAAR) 25 MG DAILY PO Acetaminophen (TYLENOL) 650 MG Q4H PRN PRN PO Hydrocodone Bitart/Acetaminophen (NORCO 5/325) 1 TAB Q6H PRN PRN PO Morphine Sulfate (morphine SULFATE) 4 MG Q4H PRN PRN IV Ondansetron HCl (ZOFRAN) 4 MG Q4H PRN PRN IV Acetaminophen (TYLENOL) 0 .STK-MED ONE .ROUTE (DC) Ondansetron HCl (ZOFRAN) 4 MG ONCE ONE IV (DC) Hydrocodone Bitart/Acetaminophen (NORCO 5/325) 0 .STK-MED ONE PO (DC) Ondansetron HCl (ZOFRAN) 0 .STK-MED ONE IV (DC) Hydrocodone Bitart/Acetaminophen (NORCO 5/325) 1 TAB Q4H PRN PRN PO (DC) Hydrocodone Bitart/Acetaminophen (NORCO 5/325) 2 TAB Q4H PRN PRN PO Hydralazine HCl (APRESOLINE) 10 MG X1ED STA IV (DC) Aspirin (ASPIRIN) 324 MG X1ED STA PO (DC) Physical Exam General appearance: alert, awake, oriented Head/Eyes: atraumatic, normocephalic Cardiovascular: bradycardic Respiratory: aerating well, clear to auscultation, symmetric expansion, no distress Abdomen: non-tender, soft, no distention Extremities: moves all, no clubbing, no cyanosis, no edema Musculoskeletal: normal inspection Neuro/HR RECEPTIONIST: alert, oriented X 3, normal speech Psychiatry: normal affect, normal mood Results Findings/Data: Laboratory Tests 01/15 01/15 0747 0746 Chemistry Sodium (134 - 147 mEq/L) 142 Potassium (3.4 - 5.0 mEq/L) 4.2 Chloride (100 - 108 mEq/L) 107 Carbon Dioxide (21 - 33 mEq/l) 24 Anion Gap (0 - 20) 15 BUN (7 - 25 mg/dL) 15 Creatinine (0.6 - 1.3 mg/dL) 0.8 Glomerular Filtr Rate (80 - 90) 81.7 Glucose (77 - 141 mg/dL) 112 Calcium (8.0 - 10.5 mg/dL) 9.7 Phosphorus (2.5 - 4.9 MG/DL) 3.4 Magnesium (1.6 - 2.6 mg/dL) 1.84 Total Bilirubin (0.0 - 1.0 mg/dL) 0.30 Direct Bilirubin (0.1 - 0.3 MG/DL) < 0.10 L Indirect Bilirubin (MG/DL) 0.20 AST (8 - 34 IUnit/L) 19 ALT (10 - 49 IUnit/L) 22 Total Alk Phosphatase (20 - 125 IUnit/L) 84 Troponin I High Sens (0 - 34 ng/L) 4 Total Protein (5.7 - 8.2 g/dL) 6.9 Albumin (3.4 - 5.0 g/dL) 3.50 Laboratory Tests 01/15 01/15 0747 0746 Coagulation INR (0.8 - 1.2) 1.0 PT Patient/Control Mix (9.3 - 12.9 SECONDS) 11.0 D-Dimer (<=500 ng/mlFEU) 415 Laboratory Tests 01/15 0747 Hematology WBC (4.5 - 11.0 x10 3/uL) 8.9 RBC (3.54 - 5.02 x10 6/uL) 4.58 Hgb (11.0 - 15.0 g/dL) 13.3 Hct (33.0 - 45.0 %) 41.3 MCV (81.0 - 99.0 fL) 90.2 MCH (27.0 - 33.0 pg) 29.0 MCHC (33.0 - 37.0 g/dL) 32.2 L RDW (11.5 - 14.5 %) 14.0 Plt Count (150 - 400 x10 3/uL) 238 MPV (7.0 - 9.0 fL) 9.4 H Neut % (Auto) (56.0 - 77.0 %) 55.4 L Lymph % (Auto) (14.0 - 32.0 %) 32.9 H [place] % (Auto) (4.8 - 9.0 %) 7.3 Eos % (Auto) (0.3 - 3.7 %) 3.5 Baso % (Auto) (0.0 - 2.0 %) 0.6 Neut # (Auto) (2.0 - 7.6 x10 3/uL) 4.95 Lymph # (Auto) (1.0 - 3.8 x10 3/uL) 2.94 [place] # (Auto) (0.1 - 0.8 x10 3/uL) 0.65 Eos # (Auto) (0.0 - 0.2 x10 3/uL) 0.31 H Baso # (Auto) (0.0 - 0.2 x10 3/uL) 0.05 Abs Immat Gran (auto) (0.00 - 0.03 x10 3/uL) 0.03 Immature Gran % (0.0 - 2.0 %) 0.3 Nucleated RBC % (0 - 0 %) 0.0 Nucleated RBCs # (Man) (0.0 - 0.1 x10 3/uL) 0.00 Radiology data: Recent Impressions: RADIOLOGY - XR CHEST 1 V 01/15 0822 Report Impression - Status: SIGNED Entered: 01/15/2025 0834 IMPRESSION: 1. No acute cardiopulmonary findings seen. Electronically signed by: Gt Maya MD 01/15/2025 08:32 AM CDT RP Impression By: [email or web address] - Gt Maya M.D. Diagnosis, Assessment Plan Free Text DxA P Notes Free Text DxA P Notes: Assessment and plan: Patient is a 64 year old female with PMHx of HTN, GERD and PE (2014, took eliquis for 6 months) presented to the ED with complaints of chest pain, dizziness and fatigue. Per patient, she was in her usual state of health 2 days ago when she went for a routine follow up to her PCP and was found to be bradycardic. Her PCP then referred her to a chip machine operator who further referred her to an EP physician for PPM evaluation. Patient had a tele visit with Dr. Fry yesterday, who was initially planning outpatient pacemaker placement, however the patient got symptomatic this morning and was advised to go to the ED. Patient said she has left sided chest pain occuring at rest with no radiation. On evaluation, patient was bradycardic with HR in 40s and EKG was significant for a second degree AV block (Mobitz type 2). EP consulted. Patient is scheduled undergo PPM placement today. #Second degree AV block (Mobitz type II) #Symptomatic bradycardia - EKG done - Trops and D dimer negative - Continue telemetry monitoring - EP consult - S/P PPM - Hold anticoagulation - Avoid AV brenda blocking meds - TSH ordered - Start Doxycycline 100mg PO for 10 days #HTN - TRACK INSPECTOR elevated on presentation likely due to stress - Resume home med losartan 25 mg daily - IV hydralazine 10 mg Q6h prn - Monitor BP #GERD - Resume home med when reconciled #Hx of PE - Patient not on eliquis Diet: Cardiac DVT prophylaxis: Only SCDs, hold AC Code status: Full code Disposition: Per EP recommendations Chaz Galicia 01/15/252114: Attestations Teaching Physician Attestation 1st visit w/o resident: I performed a history and physical examination of the patient and discussed with the resident. I have reviewed the resident's note and agree with the findings and plan as documented in the resident's note. at 1809 at 2116 RPT #:[id number] END OF REPORT [facility] 2025-01-15 08:49:00 [facility] EP Consultation Note REPORT#:[id number] REPORT STATUS: Signed REPORT INITIALIZATION DATE:01/15/25 TIME: 08 PATIENT: BHUPENDRA CALIXTO UNIT #: [id number] ROOM/BED: [place] [phone] : 58 AGE: 64 SEX: F ATTEND: Chaz Galicia MD ADM AUTHOR: Bianca Easley TRACK INSPECTOR REPT SERVICE DT/TIME: 01/15/25 0849 * ALL edits or amendments must be made on the electronic/computer document * Christina Easley 01/15/25 0849: History of Present Illness Requesting clinician: Dr. Wood Reason for consult: Second degree AV block Chief complaint: fatigue, dizziness PCP: [facility]CP: [facility] HPI: The patient is a 64-year-old female with history of hypertension who presented to ED with weakness, chest pain, dizziness. Reports she was evaluated yesterday by Dr. Fry, JAKY with plan for outpatient pacemaker, but started having symptoms this morning. She was advised to come to ED for evaluation. EP consulted for PPM. Thank you for the consultation. History - Adult longitudinal Smoking status for patients 13 years old or older: Never Smoker Allergies: Coded Allergies: venom-honey bee (BEE VENOM (HONEY BEE)) (Severe, EDEMA 01/20/16) prednisone (Intermediate, hives 01/15/25) latex (RASH, EDEMA 01/20/16) levofloxacin (From LEVAQUIN) (VOMITING 01/20/16) Review of Systems Constitutional: Reports: fatigue, generalized weakness. Respiratory: Reports: MILAN (dyspnea on exertion). Cardiovascular: Reports: chest pain. GI: Denies: abdominal pain. Musculoskeletal: Denies: extremity swelling. Heme: Denies: bleeding. Neuro: dizziness, lightheaded. Denies: syncope. Objective VS/I O Laboratory Tests 01/15/25 0747: [Embedded Image Not Available] Current Medications Sig/Marie Start time Last Medication Dose Route Stop Time Status Admin Doxycycline 100 MG Q12H 01/15 2100 AC Monohydrate PO 01/25 2059 Ondansetron HCl 4 MG ONCE ONE 01/15 1330 AC IV 01/15 1331 Hydrocodone Bitart/ 1 TAB Q4H PRN PRN 01/15 1200 AC Acetaminophen PO 01/20 1159 Hydrocodone Bitart/ 2 TAB Q4H PRN PRN 01/15 1200 AC Acetaminophen PO 01/20 1159 Hydralazine HCl 10 MG X1ED STA 01/15 0756 DC 01/15 IV 01/15 0757 0910 Aspirin 324 MG X1ED STA 01/15 0731 DC 01/15 PO 01/15 0732 0822 Last Documented: Result Date Time Pulse Ox 97 01/15 1031 B/P 148/69 01/15 1031 B/P Mean 99 01/15 1031 Pulse 42 01/15 1031 Resp 19 01/15 1031 O2 Delivery Room air 01/15 0730 Temp 35.6 01/15 0730 PATIENT WEIGHT: Weight (lb): Weight (oz): Weight (kg): 90.909 General appearance: alert, awake, oriented, no acute distress HEENT: mucosal membranes moist Neck: non-tender Cardiovascular: CV assessment: bradycardia, irregular rhythm Respiratory: no distress Abdomen: soft Extremities: dry Neuro/HR RECEPTIONIST: alert, oriented X 3 EKG Interpretation: 2nd degree AVB Mobitz II Treatment Prophylaxis Treatment Prophylaxis Oxygen: room air Diagnosis, Assessment Plan Free Text A P: Assessment: 1. Second degree type 2 AV block, 2:1 conduction 2. Symptomatic bradycardia 3. Dizziness, fatigue, chest pain, SOB 4. Weakness 5. HTN EKG - Second degree 2:1 AV block, V shon 49 bpm, QRS 142ms, RBBB Plan/Recommendations: - Continuous tele monitoring - On tele second degree 2:1 AV block, HR 30-40s - Patient had telehealth visit yesterday with Dr. Fry for PPM evaluation, was to be scheduled for outpatient PPM, however she became symptomatic this morning and was advised to come to ED for PPM, her referring physician is Dr. Rodriguez (cardiology) - AVOID AV brenda blocking medications - Second degree AV block 2:1 conduction, symptomatic bradycardia, reports dizziness, lightheadedness, fatigue, weakness, SOB - Recommend PPM - NPO - Hold anticoagulation - Plan for dual chamber PPM implantation today - Doxycycline 100mg BID x 10 days post PPM - FU with Dr. Fry in 1-2 weeks for post op device check Discussed plan and PPM as well as indications, risks, benefits with patient and family, verbalized understanding and would like to proceed with PPM MDM per Dr. Daniele Fry Discussed post op and follow up care - Follow up with Dr. Fry in 1- 2 weeks - Antibiotics as prescribed - Pressure dressing x 72 hours, keep post op dressing clean, dry until follow up - No driving x 2 weeks - No arm above head or elbow above shoulder level x 2 weeks - Sling x 1 week, at night while sleeping x 4-6 weeks - Monitor site for infection, fever - No lifting, pushing, pulling, swinging with affected arm x 6 weeks - Do not itch, scratch, pick, scrub, rub site, no lotions or ointments - Do not submerge incision site in water, no swimming x 6 weeks Total time taken for patient care including chart review, imaging review, lab review, counseling patient and family and formulating management plan 60 minutes CPT 04593 Plan discussed with: patient, family Code status: full code Daniele Santos 01/15/25 2101: Attestations Physician Attestation Agree w/findings plan: Agree with the findings and plan as documented by Bianca Easley TRACK INSPECTOR at 1330 at 2102 RPT #:[id number] END OF REPORT [facility] 2025-01-15 07:44:00 [facility] ([facility]) EMERGENCY PROVIDER REPORT REPORT#:[id number] REPORT STATUS: Signed DATE:01/15/25 TIME: 743 PATIENT: BHUPENDRA CALIXTO UNIT #: [id number] ROOM/BED: [place] [id number] : [birth year] AGE: 64 SEX:F PCP PHYS: [facility] AUTHOR: Rolando Wood MD REP SRV REP SRV TM: 0744 * ALL edits or amendments must be made on the electronic/computer document * HPI-Dizziness/Weakness Free Text HPI Notes Free Text HPI Notes 64-year-old woman, history of hypertension, presents with weakness, chest pain, dizziness. Reports she was evaluated yesterday by JAKY Scales with plan for outpatient pacemaker, but started having symptoms this morning, discussed with Dr. Fry an outpatient and presents to the ER based on his recommendation. Reports she woke up with the symptoms. Reports she has known about her bradycardia. Reports any pain at exertion, recent fever, chills, nausea, vomiting, takes losartan 25, no other antihypertensives, no anticoagulation. General Initial Greet Date/Time 01/15/25 0730 PCP Connie Fry Presentation Chief Complaint Weakness, generalized Review of Systems Free Text ROS Notes Free Text ROS Notes Review of systems was performed, pertinent positives and negatives noted in HPI Past Medical History - Adult Stated Complaint CHEST PAIN, DIZZY, LIGHT HEADED Allergies Coded Allergies: venom-honey bee (BEE VENOM (HONEY BEE)) (Severe, EDEMA 01/20/16) prednisone (Intermediate, hives 01/15/25) latex (RASH, EDEMA 01/20/16) levofloxacin (From LEVAQUIN) (VOMITING 01/20/16) Home Medications Reported Medications APIXABAN (ELIQUIS) 10 MG PO BID Physical Exam Vital Signs Vital Signs First Documented: Result Date Time Pulse Ox 96 01/15 730 B/P 236/102 01/15 730 O2 Delivery Room air 01/15 730 Temp 35.6 01/15 730 Pulse 41 01/15 730 Resp 17 01/15 730 B/P Mean 118 01/15 0801 Last Documented: Result Date Time Pulse Ox 100 01/15 930 B/P 171/72 01/15 930 B/P Mean 104 01/15 930 Pulse 42 01/15 930 Resp 19 01/15 0916 O2 Delivery Room air 01/15 730 Temp 35.6 01/15 730 Review of Vital Signs Reviewed Free Text PE Notes Free Text PE Notes Head: Normocephalic, atraumatic. Eyes: Normal conjunctiva, anicteric. Round symmetric pupils. ENT: Hearing grossly intact. No nasal discharge. Neck: Neck is supple. No masses or thyromegaly. CV: Bradycardic rate and regular rhythm, normal S1/S1, no murmurs, rubs, or gallops appreciated. 2+ radial pulses symmetric bilaterally. Respiratory: Clear to auscultation bilaterally, moving air well. No crackles or wheezes are heard. Abdominal: Soft, nontender, nondistended with normoactive bowel sounds. Skin: Warm. No rashes or ulcers. Musculoskeletal: Painless range of motion, non-tender Upper Extremities: inspection normal, no deformity Lower Extremities: inspection normal, no deformity Psych: Alert and oriented. Cooperative, Appropriate mood and affect, Normal judgment. Neuro: Moving all four extremities, no facial droop, no motor asymmetry appreciated. Interpretation Diagnostics Lab Results Interpretation Results Laboratory Tests 01/15/25 0747: [Embedded Image Not Available] Laboratory Tests: 01/15 01/15 0747 0746 Chemistry Sodium (134 - 147 mEq/L) 142 Potassium (3.4 - 5.0 mEq/L) 4.2 Chloride (100 - 108 mEq/L) 107 Carbon Dioxide (21 - 33 mEq/l) 24 Anion Gap (0 - 20) 15 BUN (7 - 25 mg/dL) 15 Creatinine (0.6 - 1.3 mg/dL) 0.8 Glomerular Filtr Rate (80 - 90) 81.7 Glucose (77 - 141 mg/dL) 112 Calcium (8.0 - 10.5 mg/dL) 9.7 Phosphorus (2.5 - 4.9 MG/DL) 3.4 Magnesium (1.6 - 2.6 mg/dL) 1.84 Total Bilirubin (0.0 - 1.0 mg/dL) 0.30 Direct Bilirubin (0.1 - 0.3 MG/DL) < 0.10 L Indirect Bilirubin (MG/DL) 0.20 AST (8 - 34 IUnit/L) 19 ALT (10 - 49 IUnit/L) 22 Total Alk Phosphatase (20 - 125 IUnit/L) 84 Troponin I High Sens (0 - 34 ng/L) 4 Total Protein (5.7 - 8.2 g/dL) 6.9 Albumin (3.4 - 5.0 g/dL) 3.50 Coagulation INR (0.8 - 1.2) 1.0 PT Patient/Control Mix (9.3 - 12.9 SECONDS) 11.0 D-Dimer (<=500 ng/mlFEU) 415 Hematology WBC (4.5 - 11.0 x10 3/uL) 8.9 RBC (3.54 - 5.02 x10 6/uL) 4.58 Hgb (11.0 - 15.0 g/dL) 13.3 Hct (33.0 - 45.0 %) 41.3 MCV (81.0 - 99.0 fL) 90.2 MCH (27.0 - 33.0 pg) 29.0 MCHC (33.0 - 37.0 g/dL) 32.2 L RDW (11.5 - 14.5 %) 14.0 Plt Count (150 - 400 x10 3/uL) 238 MPV (7.0 - 9.0 fL) 9.4 H Neut % (Auto) (56.0 - 77.0 %) 55.4 L Lymph % (Auto) (14.0 - 32.0 %) 32.9 H [place] % (Auto) (4.8 - 9.0 %) 7.3 Eos % (Auto) (0.3 - 3.7 %) 3.5 Baso % (Auto) (0.0 - 2.0 %) 0.6 Neut # (Auto) (2.0 - 7.6 x10 3/uL) 4.95 Lymph # (Auto) (1.0 - 3.8 x10 3/uL) 2.94 [place] # (Auto) (0.1 - 0.8 x10 3/uL) 0.65 Eos # (Auto) (0.0 - 0.2 x10 3/uL) 0.31 H Baso # (Auto) (0.0 - 0.2 x10 3/uL) 0.05 Abs Immat Gran (auto) (0.00 - 0.03 x10 3/uL) 0.03 Immature Gran % (0.0 - 2.0 %) 0.3 Nucleated RBC % (0 - 0 %) 0.0 Nucleated RBCs # (Man) (0.0 - 0.1 x10 3/uL) 0.00 Microbiology: Date/Time Procedure - Status Source Growth 01/15 0732 Influenza Virus Type B Antigen - ORD NASOPHARG 01/15 0732 Influenza Virus Type A Antigen - ORD NASOPHARG Recent Impressions: RADIOLOGY - XR CHEST 1 V 01/15 0822 Report Impression - Status: SIGNED Entered: 01/15/2025 0834 IMPRESSION: 1. No acute cardiopulmonary findings seen. Electronically signed by: Gt Maya MD 01/15/2025 08:32 AM [email or web address] Impression By: [email or web address] - Gt Maya M.D. ECG #1 Interpretation Text/Dict Note EKG from 01/15/2025 at 0738, performed for weakness, chest pain Interpreted by myself, ED physician Second-degree AV block, Mobitz 2, appears to drop every other atrial complex rate 40 Normal axis Normal intervals No ST elevation or ST depression suggestive of ischemia Re-Evaluation MDM Free Text MDM Notes Free Text MDM Notes 64-year-old woman, here with chest pain, nausea, weakness, profoundly bradycardic, appears to have sinus bradycardia versus second-degree heart block 0832 spoke with MA from Dr. Fry's office, who will relay the message to a physician TRACK INSPECTOR there, who will call back Patient with significantly proved BP, still waiting labs Rhythm strip shows Frequently dropped P waves, appears to be every other, P waves not marching out, but consistent MI intervals, overall suggest Mobitz 2 0928 D/w dr fry, who will plan for pacemaker later today Labs otherwise unremarkable, hemodynamically stable, will control BP, discussed with Dr. Love and hospitalist agreeable to IMCU for monitoring preop ED Course Medication(s) Ordered Medication(s) Ordered: Anti-Infective Agents Sig/Marie Start time Last Medication Dose Route Stop Time Status Admin Doxycycline 100 MG Q12H 01/15 2100 AC Monohydrate PO 01/25 2059 Cardiovascular Drugs Sig/Marie Start time Last Medication Dose Route Stop Time Status Admin Hydralazine HCl 10 MG X1ED STA 01/15 0756 DC 01/15 IV 01/15 0757 0910 Central Nervous System Agents Sig/Marie Start time Last Medication Dose Route Stop Time Status Admin Aspirin 324 MG X1ED STA 01/15 0731 DC 01/15 PO 01/15 0732 0822 Patient Discharge Departure Vital Signs/Condition Vital Signs First Documented: Result Date Time Pulse Ox 96 01/15 0730 B/P 236/102 01/15 0730 O2 Delivery Room air 01/15 0730 Temp 35.6 01/15 0730 Pulse 41 01/15 0730 Resp 17 01/15 0730 B/P Mean 118 01/15 0801 Last Documented: Result Date Time Pulse Ox 100 01/15 0930 B/P 171/72 01/15 0930 B/P Mean 104 01/15 0930 Pulse 42 01/15 0930 Resp 19 01/15 0916 O2 Delivery Room air 01/15 0730 Temp 35.6 01/15 0730 All vital signs available at the time of this entry have been reviewed. Condition Guarded Clinical Impression Clinical Impression Primary Impression: Mobitz type II atrioventricular block Time of Impression 930 Disposition Decision Hospitalize Hosp Physician Name Chaz Galicia MD )( Accepts Hospitalization Yes )( Reason for Hospitalization mobitz 2 block at 1306 RPT #:[id number] END OF REPORT [facility] 2025-01-13 15:15:30 Chief Complaint Patient presents with Physical HRA Patient has already done her labs Elsa Orr MA [facility] 2025-01-06 16:12:10 Chief Complaint Patient presents with Insect Sting Stung by Bee yesterday cellulitis to left arm Halley Topete LVN [facility] 2024-06-03 13:47:18 Chief Complaint Patient presents with Insect Sting 3 wasp stings Epi pen was used. Left arm , red, swollen and painful. Needs refill on epi pen Halley Topete LVN [facility] 2023-11-24 09:42:01 Chief Complaint Patient presents with Blood Pressure Wants to consult about b/p Halley Topete LVN [facility]
--- NOTE | 2025-05-10 17:05 | EDPHYS ---
Physician Documentation [facility] Name: Tiesha Avery Age: 64 yrs Sex: Female : 1960 Arrival Date: 05/10/2025 Time: 15:31 Bed 11 Private MD: ED Physician Giles Camargo HPI: 05/10 17:59 This 64 yrs old Female presents to ER via Unassigned with complaints of Finger Injury. kb 17:59 Pt is a 64 year old female who presents for laceration to left middle finger. States kb she was squatting down, cutting a rug pad, and fell forward landing on outstretched finger. Denies any other injuries. . Historical: - Allergies: 15:42 Latex, Natural Rubber; iw - PMHx: 15:42 PE; bradycardia; Hypertensive disorder; GERD; iw - PSHx: 15:42 pacemaker; Appendectomy; iw ROS: 15:45 Constitutional: As per HPI kb Exam: 17:57 Constitutional: This is a well developed, well nourished patient who is awake, alert, kb and in no acute distress. Head/Face: Normocephalic, atraumatic. ENT: Moist Mucous membranes Cardiovascular: Regular rate Respiratory: Respirations even and unlabored. No increased work of breathing. Talking in full sentences MS/ Extremity: Pulses equal, no cyanosis. Neurovascular intact. Full, normal range of motion. Neuro: Awake and alert, GCS 15, oriented to person, place, time, and situation. 17:57 Skin: injury, laceration(s), the wound is approximately 1.5 cm(s), of the dorsal aspect of proximal phalanx of left middle finger, that can be described as clean, linear, without bleeding, Vital Signs: 16:28 BP 160 / 110; Pulse 61; Resp 16; Temp 97.7; Pulse Ox 100% on R/A; iw Procedures: 15:44 Nerve block: (digital) of dorsal aspect of proximal phalanx of left middle finger kb Medication: Lidocaine 1% without epinephrine Marcaine 0.5%, Amount: 4 mls were injected, Effect: the patient has resolution of the pain, Set up for procedure. Performed by Lubna HAYNES Patient tolerated well. Laceration: 17:12 Wound Repair of 1.5cm ( 0.6in ) subcutaneous laceration to dorsal aspect of distal kb phalanx of left middle finger. Linear shaped.. Distal neuro/vascular/tendon intact. Anesthesia: Digital block administered with 1% lidocaine. Wound prep: Extensive cleansing with hibiclenz by me, Wound irrigation with saline by me. Skin closed with 2 5-0 Prolene using simple sutures and sterile technique. Patient tolerated well. MDM: 15:34 Medical Screening Exam initiated kb 17:17 Differential diagnosis: dislocation, closed fracture, contusion, laceration. Data kb reviewed: vital signs, nurses notes. I considered the following discharge prescriptions or medication management in the emergency department antibiotics and pain medication prescribed. Independent interpretation of the following test(s) in the Emergency Department X-Ray: My interpretation is displaced fracture of distal phalanx of third digit, left hand. Historians other than the Patient: Spouse/Significant Other: spouse. Counseling: I had a detailed discussion with the patient and/or guardian regarding the historical points, exam findings, and any diagnostic results supporting the discharge/admit diagnosis, radiology results, the need for outpatient follow up, a hand specialist, to return to the emergency department if symptoms worsen or persist or if there are any questions or concerns that arise at home. 05/10 15:35 Order name: Hand Left 3 View XRAY; Complete Time: 17:12 kb 05/10 15:35 Order name: Dressing - Wound; Complete Time: 17:36 kb 05/10 15:35 Order name: Gloves, Sterile; Complete Time: 17:09 kb 05/10 15:35 Order name: Prolene, Sutures; Complete Time: 17:09 kb 05/10 15:35 Order name: Setup Suture Tray; Complete Time: 17:09 kb 05/10 17:03 Order name: Finger Splint; Complete Time: 17:31 kb Administered Medications: 15:50 Drug: Ondansetron PO 4 mg PO once Route: PO; iw 16:50 Follow up: Response: No adverse reaction iw 17:15 Drug: Lidocaine Infiltration (1 %) 1 vials 5 ml Infiltration once; to bedside {Note: iw admin by GENESIS Calvo.} Volume: 5 ml; Route: Infiltration; 17:36 Drug: Amoxicillin-Clavulanate PO 875 mg PO once Route: PO; iw 17:38 Follow up: Response: No adverse reaction iw 17:36 Drug: HYDROcodone-acetaminophen PO 5 mg-325 mg 1 tabs PO once Route: PO; iw 17:36 Follow up: Response: No adverse reaction; Medication Administered at Departure iw 17:37 Follow up: Response: No adverse reaction iw 17:45 Drug: Bupivacaine Infiltration (0.5 %) 1 vials 10 ml Infiltration once {Note: admin by cesar Calvo NP .} Volume: 10 ml; Route: Infiltration; Disposition: 18:18 Co-signature as Attending Physician, Giles Camargo MD I reviewed the patient's care rn provided by the Advanced Practice Provider and agree with the diagnosis and treatment plan. Disposition Summary: 05/10/25 17:04 Discharge Ordered Notes: Location: Home kb Condition: Stable kb Diagnosis - Displaced fracture of distal phalanx of left middle finger kb - Laceration without foreign body of left middle finger without damage to nail kb Followup: kb - With: Emergency Department - When: As needed - Reason: Worsening of condition Followup: kb - With: Private Physician - When: 2 - 3 days - Reason: Recheck today's complaints, Continuance of care, Re-evaluation by your physician Discharge Instructions: - Discharge Summary Sheet kb - Finger Fracture, Adult, [id number] kb - Laceration Care, Adult, [id number] kb Forms: - Medication Reconciliation Form kb - Antibiotic Education kb - Prescription Opioid Use kb - Patient Portal Instructions kb - Leadership Thank You Letter kb Prescriptions: - Augmentin 875-125 mg Oral Tablet - take 1 tablet ORAL route every 12 hours for 10 days; 20 tablet; Refills: 0, kb Product Selection Permitted - Tramadol 50 mg Oral Tablet - take 1 tablet ORAL route every 8 hours as needed; 12 tablet; Refills: 0, kb Product Selection Permitted Signatures: Dispatcher [employer] Lubna Burger, Rita Berman, RN RN Giles Rodríguez MD MD rn
--- NOTE | 2025-05-10 17:05 | ER ---
Nurse's Notes [facility] Name: Tiesha Avery Age: 64 yrs Sex: Female : 1960 Arrival Date: 05/10/2025 Time: 15:31 Bed 11 Private MD: Diagnosis: Displaced fracture of distal phalanx of left middle finger;Laceration without foreign body of left middle finger without damage to nail Presentation: 05/10 15:42 Risk Assessment: Do you want to hurt yourself or someone else? Patient reports no iw desire to harm self or others. Onset of symptoms was May 10, 2025. 15:42 Acuity: VELMA 3 iw 15:42 Chief complaint: Patient states: pt was squatting down and fell forward, landing on her iw left middle finger. Coronavirus screen: At this time, the client does not indicate any symptoms associated with coronavirus-19. Ebola Screen: No symptoms or risks identified at this time. Initial Sepsis Screen: Does the patient meet any 2 criteria? No. Patient's initial sepsis screen is negative. Does the patient have a suspected source of infection? No. Patient's initial sepsis screen is negative. 15:42 Method Of Arrival: Ambulatory iw Triage Assessment: 15:42 General: Appears in no apparent distress. Behavior is anxious. iw Historical: - Allergies: 15:42 Latex, Natural Rubber; iw - PMHx: 15:42 PE; bradycardia; Hypertensive disorder; GERD; iw - PSHx: 15:42 pacemaker; Appendectomy; iw Screenin:30 [facility] ED Fall Risk Assessment (Adult) History of falling in the last 3 months, iw including since admission No falls in past 3 months (0 pts) Confusion or Disorientation No (0 pts) Intoxicated or Sedated No (0 pts) Impaired Gait No (0 pts) Mobility Assist Device Used No (0 pt) Altered Elimination No (0 pt) Score/Fall Risk Level 0 - 2 = Low Risk Oriented to surroundings, Maintained a safe environment. Abuse screen: Denies threats or abuse. Denies injuries from another. Nutritional screening: No deficits noted. Tuberculosis screening: No symptoms or risk factors identified. Assessment: 15:42 General: Appears uncomfortable, Behavior is cooperative, crying. Pain: Complains of iw pain in dorsal aspect of proximal phalanx of left middle finger. Neuro: Level of Consciousness is awake, alert, obeys commands, Oriented to person, place, time, situation. Cardiovascular: Patient's skin is warm and dry. Respiratory: Respiratory effort is even, unlabored, Respiratory pattern is regular, symmetrical. Derm:. 15:42 Injury Description: Laceration sustained to dorsal aspect of proximal phalanx of left iw middle finger is full thickness, 0.5 to 2.5 cm long, was sustained less than 30 minutes ago. a small amount of bleeding noted at this time. 16:40 Reassessment: Patient appears in no apparent distress at this time. pt states she is iw getting feeling back in her finger. Vital Signs: 16:28 BP 160 / 110; Pulse 61; Resp 16; Temp 97.7; Pulse Ox 100% on R/A; iw ED Course: 15:34 Patient arrived in ED. kb 15:34 Lub[facility] Solares [facility]C [facility] kb 15:34 Giles Camargo MD is Attending Physician. kb 15:42 Rita Hernandez RN is Primary Nurse. iw 15:42 Triage completed. iw 15:45 Arm band placed on. iw 16:55 Hand Left 3 View XRAY In Process Unspecified. EDMS 17:00 Assist provider with laceration repair on dorsal aspect of proximal phalanx of left iw middle finger that was 2.5 cm. or less using sutures. Set up tray. Performed by Lubna HAYNES Dressed with 4X4s, Bridget, Patient tolerated well. Patient did not have IV access during this emergency room visit. Administered Medications: 15:50 Drug: Ondansetron PO 4 mg PO once Route: PO; iw 16:50 Follow up: Response: No adverse reaction iw 17:15 Drug: Lidocaine Infiltration (1 %) 1 vials 5 ml Infiltration once; to bedside {Note: iw admin by NP. Lubna} Volume: 5 ml; Route: Infiltration; 17:36 Drug: Amoxicillin-Clavulanate PO 875 mg PO once Route: PO; iw 17:38 Follow up: Response: No adverse reaction iw 17:36 Drug: HYDROcodone-acetaminophen PO 5 mg-325 mg 1 tabs PO once Route: PO; iw 17:36 Follow up: Response: No adverse reaction; Medication Administered at Departure iw 17:37 Follow up: Response: No adverse reaction iw 17:45 Drug: Bupivacaine Infiltration (0.5 %) 1 vials 10 ml Infiltration once {Note: admin by iw GENESIS Calvo .} Volume: 10 ml; Route: Infiltration; Medication: 17:45 VIS not applicable for this client. iw Outcome: 17:04 Discharge ordered by . marika 17:36 Discharged to home ambulatory, with family, iw 17:36 Condition: good 17:36 Discharge instructions given to patient, family, Instructed on discharge instructions, follow up and referral plans. medication usage, Demonstrated understanding of instructions, follow-up care, medications, Prescriptions given X 2, 17:36 Patient left the ED. iw Signatures: Dispatcher [employer] EDMS Lubna Solares, PBX OPERATOR-C PBX OPERATOR-Rita Reeder RN RN iw Corrections: (The following items were deleted from the chart) 05/11 08:50 08 15:42 Derm: Wound noted iw iw
--- NOTE | 2025-05-10 17:06 | RAD REPORT ---
EXAMINATION: Hand Left 3 View VIEWS: Three views CLINICAL INDICATION: Female, 64 years old. PAIN COMPARISON: No prior exam. IMPRESSION: Mildly displaced fracture at the third distal phalanx along the proximal metaphysis. Soft tissue swel ling. No radiopaque foreign body.
[2025-05-10] MEDS ORDERED: HYDROCODONE/APAP 5/325 MG TAB ONE (17:23)
[2025-05-10] MEDS ORDERED: AMOX/K CLAV 875 MG TAB ONE (17:32)
[2025-05-10 18:52] VITALS: BP 160/110; TEMP 97.7; O2SAT 100
== END 2025-05-10 17:36 | disposition home or self-care (01) ==
LOC: ER 15:31
DX: S62.633A Displaced fracture of distal phalanx of left middle finger, initial encounter for closed fracture (principal); S61.213A Laceration without foreign body of left middle finger without damage to nail, initial encounter; Z95.0 Presence of cardiac pacemaker
CPT/HCPCS: 73130; 64450; 99283; 12041; Q0162; J2003